=== PATIENT | male | born 1945 | race Caucasian/White ===

== ENCOUNTER 2018-10-09 22:02 | Inpatient (IN) | payer OTHER ==
[2018-10-09] MEDS ORDERED: OCTREOTIDE ACETATE 50 MCG/1 ML - 1 ML VIAL IVPUSH ONE (22:27)
[2018-10-09] MEDS ORDERED: ONDANSETRON 4 MG/2 ML VIAL IVPUSH STA (22:27)
[2018-10-09] MEDS ORDERED: SODIUM CHLORIDE 1,000 ML IV STA (22:27)
[2018-10-09] MEDS ORDERED: PANTOPRAZOLE SODIUM 40 MG in SODIUM CHLORIDE 100 ML IVPB ONE (22:27)
[2018-10-09] MEDS ORDERED: PANTOPRAZOLE SODIUM 40 MG/100 ML BAG IVPB ONE (22:54)
[2018-10-09] MEDS ORDERED: ONDANSETRON 4 MG/2 ML VIAL ONE (22:54)
[2018-10-09] MEDS ORDERED: OCTREOTIDE ACETATE 100 MCG/1 ML ONE (22:55)
[2018-10-09 23:19] LABS: INR 1.52 (0.83-1.09)
[2018-10-09 23:25] LABS: BASO % 0.5 % (0-2.0); EOS % 0.7 % (0-4.5); MCHC 32.8 g/dl (32.0-35.9); MEAN CELL VOLUME 94.6 fl (80-96); MEAN PLT VOLUME 9.1 fl (7.5-11.1); MONO % 5.8 % (3.8-10.2); RBC 1.91 M/mm3 (4.00-5.60); RDW 15.4 % (11.9-15.9); RETICULOCYTES 5.43 % (0.5-1.5); WHITE BLOOD COUNT 13.3 K/mm3 (4.0-10.0)
[2018-10-09 23:28] LABS: HEMOGLOBIN 5.9 GM/dL (11.7-16.9); PLATELET COUNT 3 K/MM3 (134-434)
[2018-10-09 23:32] LABS: ALBUMIN 2.6 g/dl (3.4-5.0); ALK PHOS 68 U/L (45-117); ANION GAP 14 MMOL/L (8-16); BILIRUBIN,TOTAL 0.7 mg/dL (0.2-1); BLOOD UREA NITROGEN 57.3 mg/dL (7-18); CALCIUM 8.1 mg/dL (8.5-10.1); CHLORIDE 106 mmol/L (98-107); CO2 18 mmol/L (21-32); CREATININE 1.4 mg/dL (0.55-1.3); GLUCOSE,RANDOM 167 mg/dL (74-106); SGOT/AST 14 U/L (15-37); SGPT/ALT 20 U/L (13-61); SODIUM 139 mmol/L (136-145); TOT PROT 5.8 g/dl (6.4-8.2)
[2018-10-10 00:05] LABS: PLATELET ESTIMATE Markedly Decrease
[2018-10-10] MEDS ORDERED: OCTREOTIDE ACETATE 200 MCG, OCTREOTIDE ACETATE 1,000 MCG in DEXTROSE 5%-WATER - 496 ML IVPB SCH (00:15)
[2018-10-10] MEDS ORDERED: PANTOPRAZOLE SODIUM 80 MG in SODIUM CHLORIDE 100 ML IVPB SCH (00:30)
[2018-10-10] MEDS ORDERED: NAFCILLIN - 2 GM in DEXTROSE 5%-WATER - 100 ML IVPB STA (00:34)
[2018-10-10] MEDS ORDERED: PANTOPRAZOLE SODIUM 40 MG VIAL ONE (00:36)
[2018-10-10 00:45] LABS: MCH 30.9 pg (25.7-33.7); MCHC 32.5 g/dl (32.0-35.9); MEAN CELL VOLUME 95.1 fl (80-96); RBC 1.68 M/mm3 (4.00-5.60); RDW 15.1 % (11.9-15.9); WHITE BLOOD COUNT 13.2 K/mm3 (4.0-10.0)
[2018-10-10 00:58] LABS: HEMOGLOBIN 5.2 GM/dL (11.7-16.9); PLATELET COUNT 1 K/MM3 (134-434)
--- NOTE | 2018-10-10 02:06 | PDOC ---
Documentation entered by Miri Hwang SCRIBE, acting as scribe for Natalie Byrne MD. Natalie Byrne MD: This documentation has been prepared by the Eri palmer Sammi, SCRIBE, under my direction and personally reviewed by me in its entirety. I confirm that the documentation accurately reflects all work, treatment, procedures, and medical decision making performed by me. History of Present Illness - General Chief Complaint: Rectal Bleed Stated Complaint: GI BLEED Time Seen by Provider: 10/09/18 22:15 History Source: Patient Exam Limitations: No Limitations - History of Present Illness Initial Comments: 10/09/18 22:26 The patient is a 73 year old male, with a significant PMH of alcohollism, upper GI bleeds, HTN, DM, who was BIBA to the emergency department from [facility] for evaluation of blood and black tary stools, and vomiting blood. Past History - Past Medical History Allergies/Adverse Reactions: Allergies Allergy/AdvReac Type Severity Reaction Status Date / Time No Known Allergies Allergy Verified 10/09/18 22:18 - Suicide/Smoking/Psychosocial Hx Smoking History: Never smoked Have you smoked in the past 12 months: No Information on smoking cessation initiated: No Hx Alcohol Use: Yes Drug/Substance Use Hx: No *Physical Exam - Vital Signs Last Vital Signs Temp Pulse Resp BP Pulse Ox 99.4 F 110 H 20 98/52 L 97 10/09/18 22:02 10/09/18 22:02 10/09/18 22:02 10/09/18 22:02 10/09/18 22:02 ED Treatment Course - LABORATORY CBC & Chemistry Diagram: 10/10/18 00:40 10/09/18 22:41 - ADDITIONAL ORDERS Additional order review: Laboratory Results 10/10/18 10/09/18 10/09/18 00:40 22:45 22:41 PT with INR INR Sodium Potassium Chloride Carbon Dioxide Anion Gap BUN Creatinine Est GFR (CKD-EPI)AfAm Est GFR (CKD-EPI)NonAf Random Glucose Calcium Total Bilirubin AST ALT Alkaline Phosphatase Creatine Kinase Troponin I Total Protein Albumin Stool Occult Blood Positive Anti-A Titer Cancelled Blood Type Cancelled O POSITIVE Antibody Screen Cancelled Negative Crossmatch See Detail 10/09/18 10/09/18 22:41 22:41 PT with INR 18.00 H INR 1.52 H Sodium 139 Potassium 5.0 Chloride 106 Carbon Dioxide 18 L Anion Gap 14 BUN 57.3 H Creatinine 1.4 H Est GFR (CKD-EPI)AfAm 56.96 Est GFR (CKD-EPI)NonAf 49.14 Random Glucose 167 H Calcium 8.1 L Total Bilirubin 0.7 AST 14 L ALT 20 Alkaline Phosphatase 68 Creatine Kinase 84 Troponin I < 0.02 Total Protein 5.8 L Albumin 2.6 L Stool Occult Blood Anti-A Titer Blood Type Antibody Screen Crossmatch 10/09/18 22:41 RBC 1.91 L MCV 94.6 MCHC 32.8 RDW 15.4 MPV 9.1 Neutrophils % 79.0 Lymphocytes % 14.0 Monocytes % 5.8 Eosinophils % 0.7 Basophils % 0.5 - RADIOLOGY Radiology Studies Ordered: Category Date Time Status CHEST X-RAY PORTABLE* [RAD] Stat Radiology 10/09/18 22:27 Taken - Medications Given in the ED: ED Medications Discontinued Medications Generic Name Dose Route Start Last Admin Trade Name Freq PRN Reason Stop Dose Admin Pantoprazole Sodium 40 mg/ 100 mls @ 200 mls/hr 10/09/18 22:27 10/09/18 23:08 Sodium Chloride IVPB 10/09/18 22:56 200 mls/hr ONCE ONE Administration Sodium Chloride 1,000 mls @ 1,000 mls/hr 10/09/18 22:27 10/09/18 23:07 Normal Saline - IV 10/09/18 23:26 1,000 mls/hr ASDIR STA Administration Octreotide Acetate 50 mcg 10/09/18 22:27 10/09/18 23:22 Sandostatin - IVPUSH 10/09/18 22:28 50 mcg ONCE ONE Administration Ondansetron HCl 4 mg 10/09/18 22:27 10/09/18 23:08 Zofran Injection IVPUSH 10/09/18 22:28 4 mg ONCE STA Administration Medical Decision Making - Critical Care Time Total Critical Care Time (minutes): 121 Critical Care Statement: The care of this patient involved high complexity decision making to prevent further life threatening deterioration of the patient 's condition and/or to evaluate & treat vital organ system(s) failure or risk of failure. - Medical Decision Making 10/10/18 01:15 73-year-old male with a history of alcoholism presents with a GI bleed. Reportedly, he had coffee-ground emesis earlier in the day and then started to have blood in his stool. Hemoglobin is 5.9. His platelets were reported as 3000. Spoke with GI consult. Dr. Adkins and the patient will be placed on PPI drip, octreotide drip, to be transfused with packed rbc s and also platelets. Patient to be kept nothing by mouth and admitted ICU 10/10/18 01:58 10/10/18 02:01 His daughter is the health care proxy and signed for his blood transfusions because the pt asked her to sign. . The pt is alert but a very poor historian with little understanding of his medical history-this is chronic issue Recently this pt was admitted to [facility] for a staph infection and had a PICC line placed for 3 weeks of Nafcillin 2gm . According to the daughter they could not find a source of his infection.He did not go back to [facility] today because he did not like his experience at that facility *DC/Admit/Observation/Transfer Diagnosis at time of Disposition: History of ETOH abuse GI bleed Qualifiers: GI bleed type/associated pathology: melena Qualified Code(s): K92.1 - Melena Diabetes Qualifiers: Diabetes mellitus type: type 2 Diabetes mellitus complication status: with skin complications Diabetes mellitus complication detail: with dermatitis Anemia Qualifiers: Anemia type: other cause Other causes of anemia: other cause, not classified Qualified Code(s): D64.89 - Other specified anemias - Discharge Dispostion Condition at time of disposition: Fair Decision to Admit order: Yes - Referrals - Patient Instructions - Post Discharge Activity
--- NOTE | 2018-10-10 02:38 | CONSULT ---
Consultation: REQUESTING PROVIDER: Dr. Byrne CONSULT REQUEST: We have been asked to medically evaluate this patient for ICU. HISTORY OF PRESENT ILLNESS: Pt. is a 73 y.o. M w/ PMHx. of NIDDM, EtOH abuse, and DANNA (on CPAP) presents from [facility] after having 2 episodes of hematemesis today and melena for the past 4 days. Daughter at bedside to corroborate history. Pt. denies this ever happening before. Pt. endorses dizziness that happens with activity that began since ED arrival. Pt. states that he had large amount of mazin red blood during hematemesis ("filled up half the sink"), and multiple episodes of tarry black stools over the last 4 days with episodes of mazin blood during the last day. Pt. states his last drink was just prior September 19. Pt. denies ever having seizures from withdrawal. Of note this was the day before his prolonged admission to [place] for Pneumonia?, EtoH withdrawal ( Daughter states he drinks 4 small? bottles of Zinfandel per day with some unknown amount of vodka usage, Pt. lives alone at home) and found to have sepsis of unkown source requiring antibiotics and discharged on 3 week course if IV nafcillin(On week 2 currently). Pt. denies ever having an EGD, but endorses a normal colonoscopy [address] Livingston. Pt. endorses shortness of breath especially with exertion. Ambulates with cane since [facility] discharge. Pt. denies any chest pain, palpiatations, nausea, diarrhea, constipation, hematuria, dysuria numbness/tingling, headache, or abdominal pain at this time. REVIEW OF SYSTEMS: As above PHYSICAL EXAMINATION Vital Signs - 24 hr 10/09/18 22:02 Temperature 99.4 F Pulse Rate 110 H Respiratory 20 Rate Blood Pressure 98/52 L O2 Sat by Pulse 97 Oximetry (%) GENERAL: Awake, alert, and fully oriented, in no acute distress. HEAD: Normal with no signs of trauma. EYES: Pupils equal, round and reactive to light, extraocular movements intact, sclera anicteric, conjunctiva clear. EARS, NOSE, THROAT: Ears normal, nares patent, oropharynx clear without exudates. Moist mucous membranes. LUNGS: Breath sounds equal, clear to auscultation bilaterally. No wheezes, and no crackles. No accessory muscle use. HEART: Regular rate and rhythm, normal S1 and S2 without murmur ABDOMEN: Soft, nontender, distended, normoactive bowel sounds, no guarding, no rebound, no masses. Hepatomegaly KAMRAN: Good rectal tone, no external or internal hemorrhoids appreciated. No prostate enlargement appreciated. No mazin blood on glove. MUSCULOSKELETAL: Normal range of motion at all joints. UPPER EXTREMITIES: Warm, well-perfused. No cyanosis. No clubbing. Cap refill <2 seconds. LOWER EXTREMITIES: 2+ dorsal pedal pulses, warm, well-perfused. No calf tenderness. 2+ peripheral edema. B/l Hallux plantar ulcer R>L NEUROLOGICAL: Normal speech. Gait not assessed. PSYCHIATRIC: Cooperative. Good eye contact. Appropriate mood and affect. SKIN: Warm, dry, chronic venous stasis changes with erythema Laboratory Results - last 24 hr 10/09/18 10/09/18 10/09/18 22:41 22:41 22:41 WBC 13.3 H RBC 1.91 L Hgb 5.9 L* Hct 18.0 L MCV 94.6 MCH 31.0 MCHC 32.8 RDW 15.4 Plt Count 3 L* MPV 9.1 Absolute Neuts (auto) 10.5 H Neutrophils % 79.0 Lymphocytes % 14.0 Monocytes % 5.8 Eosinophils % 0.7 Basophils % 0.5 Nucleated RBC % 0 Platelet Estimate Markedly decrease Platelet Comment No clumping noted Retic Count 5.43 H PT with INR 18.00 H INR 1.52 H Sodium 139 Potassium 5.0 Chloride 106 Carbon Dioxide 18 L Anion Gap 14 BUN 57.3 H Creatinine 1.4 H Est GFR (CKD-EPI)AfAm 56.96 Est GFR (CKD-EPI)NonAf 49.14 Random Glucose 167 H Calcium 8.1 L Total Bilirubin 0.7 AST 14 L ALT 20 Alkaline Phosphatase 68 Creatine Kinase 84 Troponin I < 0.02 Total Protein 5.8 L Albumin 2.6 L Stool Occult Blood Anti-A Titer Blood Type Antibody Screen Crossmatch 10/09/18 10/09/18 10/10/18 22:41 22:45 00:40 WBC RBC Hgb Hct MCV MCH MCHC RDW Plt Count MPV Absolute Neuts (auto) Neutrophils % Lymphocytes % Monocytes % Eosinophils % Basophils % Nucleated RBC % Platelet Estimate Platelet Comment Retic Count PT with INR INR Sodium Potassium Chloride Carbon Dioxide Anion Gap BUN Creatinine Est GFR (CKD-EPI)AfAm Est GFR (CKD-EPI)NonAf Random Glucose Calcium Total Bilirubin AST ALT Alkaline Phosphatase Creatine Kinase Troponin I Total Protein Albumin Stool Occult Blood Positive Anti-A Titer Cancelled Blood Type O POSITIVE Cancelled Antibody Screen Negative Cancelled Crossmatch See Detail 10/10/18 10/10/18 00:40 00:40 WBC 13.2 H RBC 1.68 L Hgb 5.2 L* Hct 16.0 L MCV 95.1 MCH 30.9 MCHC 32.5 RDW 15.1 Plt Count 1 L* D MPV 12.0 H D Absolute Neuts (auto) Neutrophils % Lymphocytes % Monocytes % Eosinophils % Basophils % Nucleated RBC % Platelet Estimate Platelet Comment Retic Count PT with INR INR Sodium Potassium Chloride Carbon Dioxide Anion Gap BUN Creatinine Est GFR (CKD-EPI)AfAm Est GFR (CKD-EPI)NonAf Random Glucose Calcium Total Bilirubin AST ALT Alkaline Phosphatase Creatine Kinase Troponin I Total Protein Albumin Stool Occult Blood Anti-A Titer Blood Type O POSITIVE Antibody Screen Crossmatch Active Medications Current Medications Octreotide Acetate 200 mcg/Octreotide Acetate 1,000 mcg/Dextrose 500 mls @ 20.833 mls/hr IVPB ASDIR [facility] Last Admin: 10/10/18 01:38 Dose: 20.833 mls/hr Pantoprazole Sodium 80 mg/ (Sodium Chloride) 100 mls @ 10 mls/hr IVPB Q10H [facility] Last Admin: 10/10/18 00:43 Dose: 10 mls/hr ASSESSMENT/PLAN: Pt. is a 73 y.o. M w/ PMHx. of NIDDM, EtOH abuse, and DANNA (on CPAP) presents from [facility] after having 2 episodes of hematemesis today and melena for the past 4 days. Gastroenterology/Hematology/Oncology #UGI and r/o LGI bleed likely secondary to thrombocyopenia Hgb: 5.9--> 5.2, /f/u rpt. CBC 2 units pRBCs and 2 units Platelets ordered Thrombocytopenia may be due to ITP: most likely secondary due to recent infection(low suspicion for DIC) vs. bone marrow suppression secondary to alcohol abuse Given 1,000mg IV Solumedrol Stat f/u consult to Dr. Boudreaux for considering starting IVIG c/w Octreotide drip c/w Protonix drip Consult to Dr. Adkins appreciated--> likely will need EGD to assess for varices and location of UGI bleed, will need colonoscopy if EGD unremarkable If Pt. has ongoing bleed, will consider bleeding scan NPO IVF HOB 30 degrees + f/u PT, PTT, fibrinogen, FDP, TSH, Hepatitis Panel, Pt. refused HIV f/u UA, UCx. and BCx. Start Vancomycin and Zosyn (Pt. should not have leukocytosis if on Nafcillin for infection) #EtOH Abuse Cr. 1.4, trend Can start CIWA protocol if Pt. starts to develop withdrawal symptoms however Pt. was in [place] for a prolonged admission and then transferred to [facility] before being sent here f/u Abd. US--> May need Abdominal CT Fall risk precautions. Nephrology #Acute Renal Insufficiency Likely secondary to acute blood loss f/u Rpt. chemistry Reach out to PCP Dr. Lizette Hall for baseline Cr. f/u Renal US Endocrinology #NIDDM hold oral medications BGM ACHS ISS ACHS Cardiology #Sinus Tachycardia likely 2/2 hypovolemia, will start IVF after Pt. receives pRBCs Pulmonology #DANNA c/w CPAP at night CXR: per my read no acute pathology FEN LR @ 100 after 1st unit of pRBCs monitor electrolytes and replete as needed NPO DVT Ppx. SCDs- given thrombocytopenia not a candidate for AC at this time Dispo: We will continue to follow the patient. Thank you for this consultative opportunity. Visit type - Emergency Visit Emergency Visit: Yes ED Registration Date: 10/10/18 Care time: The patient presented to the Emergency Department on the above date and was hospitalized for further evaluation of their emergent condition. - New Patient This patient is new to me today: Yes Date on this admission: 10/11/18 - Critical Care Critical Care patient: Yes Total Critical Care Time (in minutes): 55 Critical Care Statement: The care of this patient involved high complexity decision making to prevent further life threatening deterioration of the patient 's condition and/or to evaluate & treat vital organ system(s) failure or risk of failure. ATTENDING PHYSICIAN STATEMENT I saw and evaluated the patient. I reviewed the resident's note and discussed the case with the resident. I agree with the resident's findings and plan as documented. SUBJECTIVE: OBJECTIVE: ASSESSMENT AND PLAN:
[2018-10-10] MEDS ORDERED: LACTATED RINGERS SOLUTION 1,000 ML/1,000 ML INFUS.BAG IV SCH (03:30)
[2018-10-10] MEDS ORDERED: LACTATED RINGERS SOLUTION 1,000 ML/1,000 ML INFUS.BAG IV STA (04:04)
[2018-10-10 04:38] VITALS: BMI 30.8
[2018-10-10] MEDS ORDERED: methylPREDNISolone NA SUCC 1000 MG/8 ML VIAL IVPB ONE (04:58)
--- NOTE | 2018-10-10 05:31 | PN ---
Teaching Attending Note Name of Resident: Lo Palacios ATTENDING PHYSICIAN STATEMENT I saw and evaluated the patient. I reviewed the resident's note and discussed the case with the resident. I agree with the resident's findings and plan as documented. SUBJECTIVE: Patient is a 73 year old man with PMH of NIDDM, Alcohol abuse, and DANNA (on CPAP ) who presents from [facility] after having 2 episodes of hematemesis today and melena for the past 4 days. Has associated dizziness that happens with activity. Says that he had large amount of mazin red blood during hematemesis ("filled up half the sink"), and multiple episodes of tarry black stools over the last 4 days with episodes of mazin blood during the last day. Daughter states he drinks 4 small? bottles of Zinfandel per day with some unknown amount of vodka. His his last drink was just prior September 19 just before a prolonged hospitalization at [facility] for Pneumonia?, alcohol withdrawal, sepsis of unknown source requiring antibiotics - was discharged on 3 week course if IV nafcillin (Currently on week 2). No recent EGD, but reports a normal colonoscopy [address] Livingston. Currently has a shortness of breath with exertion. Ambulates with cane since discharge from [facility]. Denies any chest pain, palpitations, nausea, diarrhea, constipation, hematuria, dysuria numbness/tingling, headache, or abdominal pain at this time. OBJECTIVE: Alert Vital Signs Period Temp Pulse Resp BP Sys/Hogan Pulse Ox Last 24 Hr 98.8 F-99.4 F 102-123 19-22 75-154/47-73 97-100 HEENT: No Jaundice, eye redness or discharge, PERRLA, EOMI. Normocephalic, atraumatic. External ears are normal and hearing is grossly intact. No nasal discharge. Neck: Supple, nontender. No palpable adenopathy or thyromegaly. No JVD Chest: Good effort. Clear to auscultation and percussion. Heart: Tachycardia. No S3, rub or murmur Abdomen: Not distended, soft, nontender and no HSM. No rebound or guarding. Normal bowel sounds. On rectal examination, no hemorrhoids noted and no mazin blood on glove. Ext: Peripheral pulses intact. Non pitting leg edema. Chronic stasis dermatitis changes. Bilateral plantar halux ulcers. Skin: Warm and dry. No petechiae, rash or ecchymosis. Neuro: Alert. Oriented x3. CN 2-12 grossly intact. Sensation grossly intact in all four extremities and DTR are symmetric. Psych: Appropriate mood and affect. Good insight. Current Medications Generic Name Dose Route Start Last Admin Trade Name Roeq PRN Reason Stop Dose Admin Octreotide Acetate 200 mcg/ 500 mls @ 20.833 mls/hr 10/10/18 00:15 10/10/18 01:38 Octreotide Acetate 1,000 mcg/ IVPB 20.833 mls/hr Dextrose ASDIR RADAMES Administration Pantoprazole Sodium 80 mg/ 100 mls @ 10 mls/hr 10/10/18 00:30 10/10/18 00:43 Sodium Chloride IVPB 10 mls/hr Q10H RADAMES Administration 8 MG/HR Lactated Ringer's 1,000 ml in 1,000 mls @ 100 mls/hr 10/10/18 03:30 Lactated Ringers Solution IV ASDIR RADAMES Insulin Aspart 1 vial 10/10/18 07:00 Novolog Vial Sliding Scale - SQ ACHS RADAMES Protocol Abnormal Lab Results 10/09/18 10/09/18 10/09/18 22:41 22:41 22:41 WBC 13.3 H RBC 1.91 L Hgb 5.9 L* Hct 18.0 L Plt Count 3 L* MPV Absolute Neuts (auto) 10.5 H Retic Count 5.43 H PT with INR 18.00 H INR 1.52 H Carbon Dioxide 18 L BUN 57.3 H Creatinine 1.4 H Random Glucose 167 H Calcium 8.1 L AST 14 L Total Protein 5.8 L Albumin 2.6 L Crossmatch 10/09/18 10/10/18 22:41 00:40 WBC 13.2 H RBC 1.68 L Hgb 5.2 L* Hct 16.0 L Plt Count 1 L* D MPV 12.0 H D Absolute Neuts (auto) Retic Count PT with INR INR Carbon Dioxide BUN Creatinine Random Glucose Calcium AST Total Protein Albumin Crossmatch See Detail ASSESSMENT AND PLAN: 1. Severe thrombocytopenia/GI bleeding and severe anemia - Chronic liver disease due to alcoholism, direct effects of alcohol on bone marrow are likely primary causes of thrombocytopenia. But in view of current infection, he may also have a component of secondary ITP and/or DIC. Has positive hemoccult test. Patient is on Nafcillin via PICC line from [facility] for unspecified "infection". Will do sepsis work up - blood cultures, urinalysis, urine culture and treat with Vancomycin and Zosyn pending more information from [facility] medical records. This is week 2 of Nafcillin therapy and his WBC is still 13.5K !! Consult ID. Will get head CT, send blood for fibrinogen, FDP, aPTT, HIV test and continue with PRBC and Platelet transfusion and give 1 gm Solumedrol IV pending deputy program manager evaluation. Continue IV Octreotide drip, IV Protonix push bid and consult GI. Continue comprehensive care of all his comorbid conditions. 2. DM For now, we will hold the home diabetes drugs and implement sliding scale insulin regimen. Provide comprehensive diabetes care with patient teaching and counseling about the importance of adherence to prescribed diabetes regimen, euglycemia, eye care and foot care. 3. LONNY - Likely due to volume loss. Monitor urine output while he is being transfused/hydrated. Get kidney sonogram and avoid nephrotoxic agents such as NSAIDS, aminoglycosides, contrast dyes and certain Alternative medicine products. 4. Obesity Counseled on the risks associated with obesity. Will provide patient all the necessary assistance, counseling and positive reinforcement to facilitate weight loss. Consult mirror silverer. 5. Alcohol abuse - Implement CIWA ativan alcohol withdrawal protocol and do neurochecks. Implement seizure, fall and aspiration precautions. Treat with thiamine and folic acid and monitor electrolytes (Ca,Mg,K,P). Counseled patient about abstaining from alcohol. Will consult equal opportunity specialist and refer to alcohol detox upon discharge. 6. DVT prophylaxis - Can neither give heparin or use SCD because of severe thrombocytopenia. Strive for early ambulation when clinically safe. 7. Advance directives - Full code
[2018-10-10] MEDS ORDERED: VANCOMYCIN 1 GRAM (PRE-DOCKED) 1,000 MG/250 ML BAG IVPB SCH ×2 (06:15→18:00)
--- NOTE | 2018-10-10 06:22 | HP ---
CHIEF COMPLAINT:Hematemesis PCP: HISTORY OF PRESENT ILLNESS: 73 M with PMH DANNA, Diabetes, EtOH abuse, who comes in with 4 day history of emesis. Patient describes an episode of suspected food poisoning 2 day before admission which gave him episodes of emesis and weakness. Today he had 2 episodes of hematemesis that filled up approximately half of the sink. Throughout the day he had 4 episodes of melena, which he described as dark loose stools. He last had a colonoscopy 1.[address] Livingston. Denies ever having EGD done. He was most recently staying in [facility] home after discharge from [facility] where he was being treated for unspecified infection. Denies chest pain, shortness of breath, dizziness, abdominal pains, fever. ER course was notable for: (1)Hemoglobin of 5.9, platelet count of 3 (2)Given 1L NS, started on octreotride and PPI drip. Recent Travel:None PAST MEDICAL HISTORY: see above PAST SURGICAL HISTORY: Right hip replacement 5 years ago Social History: Smoking: Former smoker, 40 pack years, quit 10 years ago Alcohol: Last drink 09/19, usually drinks about 4 zinfindel obed and vodka. Drugs: Denies IVDU Family History: Sister passed of ovarian cancer 60, sister passed of pancreatic cancer 70, father alzheimer, passed in his 90s. Allergies No Known Allergies Allergy (Verified 10/09/18 22:18) HOME MEDICATIONS: REVIEW OF SYSTEMS (See HPI) CONSTITUTIONAL: Absent: fever, chills, diaphoresis, generalized weakness, malaise, loss of appetite, weight change HEENT: Absent: rhinorrhea, nasal congestion, throat pain, throat swelling, difficulty swallowing, mouth swelling, ear pain, eye pain, visual changes CARDIOVASCULAR: Absent: chest pain, syncope, palpitations, irregular heart rate, lightheadedness , peripheral edema RESPIRATORY: Absent: cough, shortness of breath, dyspnea with exertion, orthopnea, wheezing, stridor, hemoptysis GASTROINTESTINAL: Absent: abdominal pain, abdominal distension, nausea, vomiting, diarrhea, constipation, hematochezia GENITOURINARY: Absent: dysuria, frequency, urgency, hesitancy, hematuria, flank pain, genital pain MUSCULOSKELETAL: Absent: myalgia, arthralgia, joint swelling, back pain, neck pain SKIN: Absent: rash, itching, pallor HEMATOLOGIC/IMMUNOLOGIC: Absent: easy bleeding, easy bruising, lymphadenopathy, frequent infections ENDOCRINE: Absent: unexplained weight gain, unexplained weight loss, heat intolerance, cold intolerance NEUROLOGIC: Absent: headache, focal weakness or paresthesias, dizziness, unsteady gait, seizure, mental status changes, bladder or bowel incontinence PSYCHIATRIC: Absent: anxiety, depression, suicidal or homicidal ideation, hallucinations. PHYSICAL EXAMINATION Vital Signs - 24 hr 10/09/18 10/10/18 10/10/18 22:02 01:55 02:10 Temperature 99.4 F 99.0 F Pulse Rate 110 H Pulse Rate [ 113 H 102 H Left] Respiratory 20 19 19 Rate Blood Pressure 98/52 L Blood Pressure 75/52 L 83/51 L [Left Arm] O2 Sat by Pulse 97 100 100 Oximetry (%) 10/10/18 10/10/18 10/10/18 02:45 03:39 05:01 Temperature 98.8 F 98.8 F 98.8 F Pulse Rate 123 H 122 H 118 H Pulse Rate [ Left] Respiratory 19 22 H 20 Rate Blood Pressure 86/47 L 154/73 91/52 L Blood Pressure [Left Arm] O2 Sat by Pulse Oximetry (%) GENERAL: Awake, alert, and fully oriented, in no acute distress. HEAD: Normal with no signs of trauma. NECK: Normal range of motion, supple without lymphadenopathy, JVD, or masses. LUNGS: Breath sounds equal, clear to auscultation bilaterally. No wheezes, and no crackles. No accessory muscle use. HEART: Tachycardic but normal rhythm, normal S1 and S2 without murmur, rub or gallop. ABDOMEN: Soft, nontender, not distended, normoactive bowel sounds, no guarding, no rebound, no masses. EXTREMITIES: 2+ pulses, warm, well-perfused. No cyanosis. No clubbing. No peripheral edema. Chronic venous stasis changes bilaterally. No areas of erythema, induration or drainage. SKIN: Warm, dry, normal turgor, no rashes or lesions noted, normal capillary refill. Laboratory Results - last 24 hr 10/09/18 10/09/18 10/09/18 22:41 22:41 22:41 WBC 13.3 H RBC 1.91 L Hgb 5.9 L* Hct 18.0 L MCV 94.6 MCH 31.0 MCHC 32.8 RDW 15.4 Plt Count 3 L* MPV 9.1 Absolute Neuts (auto) 10.5 H Neutrophils % 79.0 Lymphocytes % 14.0 Monocytes % 5.8 Eosinophils % 0.7 Basophils % 0.5 Nucleated RBC % 0 Platelet Estimate Markedly decrease Platelet Comment No clumping noted Retic Count 5.43 H PT with INR 18.00 H INR 1.52 H Sodium 139 Potassium 5.0 Chloride 106 Carbon Dioxide 18 L Anion Gap 14 BUN 57.3 H Creatinine 1.4 H Est GFR (CKD-EPI)AfAm 56.96 Est GFR (CKD-EPI)NonAf 49.14 Random Glucose 167 H Calcium 8.1 L Total Bilirubin 0.7 AST 14 L ALT 20 Alkaline Phosphatase 68 Creatine Kinase 84 Troponin I < 0.02 Total Protein 5.8 L Albumin 2.6 L Stool Occult Blood Anti-A Titer Blood Type Antibody Screen Crossmatch 10/09/18 10/09/18 10/10/18 22:41 22:45 00:40 WBC RBC Hgb Hct MCV MCH MCHC RDW Plt Count MPV Absolute Neuts (auto) Neutrophils % Lymphocytes % Monocytes % Eosinophils % Basophils % Nucleated RBC % Platelet Estimate Platelet Comment Retic Count PT with INR INR Sodium Potassium Chloride Carbon Dioxide Anion Gap BUN Creatinine Est GFR (CKD-EPI)AfAm Est GFR (CKD-EPI)NonAf Random Glucose Calcium Total Bilirubin AST ALT Alkaline Phosphatase Creatine Kinase Troponin I Total Protein Albumin Stool Occult Blood Positive Anti-A Titer Cancelled Blood Type O POSITIVE Cancelled Antibody Screen Negative Cancelled Crossmatch See Detail 10/10/18 10/10/18 00:40 00:40 WBC 13.2 H RBC 1.68 L Hgb 5.2 L* Hct 16.0 L MCV 95.1 MCH 30.9 MCHC 32.5 RDW 15.1 Plt Count 1 L* D MPV 12.0 H D Absolute Neuts (auto) Neutrophils % Lymphocytes % Monocytes % Eosinophils % Basophils % Nucleated RBC % Platelet Estimate Platelet Comment Retic Count PT with INR INR Sodium Potassium Chloride Carbon Dioxide Anion Gap BUN Creatinine Est GFR (CKD-EPI)AfAm Est GFR (CKD-EPI)NonAf Random Glucose Calcium Total Bilirubin AST ALT Alkaline Phosphatase Creatine Kinase Troponin I Total Protein Albumin Stool Occult Blood Anti-A Titer Blood Type O POSITIVE Antibody Screen Crossmatch ASSESSMENT/PLAN: 73 M with PMH of Diabetes, EtOH abuse, and DANNA who presents with a 4 day history of hematemsis and melenotic stools. 1) GI Bleed likely secondary to EtOH abuse Patient already received 1 unit PRBC, and 2 units of platelets. Started on PPI and octreotide drip GI consulted NPO LR @ 100 ml/hr Monitor CBC, BMP, stools 2) Likely ITP secondary to recent infection Most recent platelet count 1, down from 3 Received 1 gram solumedrol Heme consulted Possible IVIG therapy Monitor for signs of bleeding Fibrinogen, fibrin degradation products pending Head CT pending to ensure no current bleeds 3) Recently treated unknown infection Patient received 2 weeks of IV Nafcillin for unspecified infection Will need to obtain records from [facility] ID consulted Sepsis workup initiated Currently on Vancomycin and Zoysn 4) Diabetes Sliding scale BGMs ACHS HbA1C pending 5) EtOH abuse Patient currently not in withdrawal, last drink 09/19 Monitor for any signs and symptoms of withdrawal F LR @ 100 ml/hr E Monitor Electrolytes N NPO DVT Prophylaxis: SCDs GI Prophylaxis: Protonix Drip Problem List - Problem (1) Anemia Code(s): D64.9 - ANEMIA, UNSPECIFIED Qualifiers: Anemia type: other cause Other causes of anemia: other cause, not classified Qualified Code(s): D64.89 - Other specified anemias (2) Diabetes mellitus Code(s): E11.9 - TYPE 2 DIABETES MELLITUS WITHOUT COMPLICATIONS Qualifiers: Diabetes mellitus type: type 2 Diabetes mellitus complication status: with skin complications Diabetes mellitus complication detail: with dermatitis (3) Gastrointestinal hemorrhage Code(s): K92.2 - GASTROINTESTINAL HEMORRHAGE, UNSPECIFIED Qualifiers: GI bleed type/associated pathology: melena Qualified Code(s): K92.1 - Melena (4) History of alcohol abuse Code(s): F10.11 - ALCOHOL ABUSE, IN REMISSION Visit type - Emergency Visit Emergency Visit: Yes ED Registration Date: 10/10/18 Care time: The patient presented to the Emergency Department on the above date and was hospitalized for further evaluation of their emergent condition. - New Patient This patient is new to me today: Yes Date on this admission: 10/10/18 - Critical Care Critical Care patient: Yes Total Critical Care Time (in minutes): 35 Critical Care Statement: The care of this patient involved high complexity decision making to prevent further life threatening deterioration of the patient 's condition and/or to evaluate & treat vital organ system(s) failure or risk of failure. ATTENDING PHYSICIAN STATEMENT I saw and evaluated the patient. I reviewed the resident's note and discussed the case with the resident. I agree with the resident's findings and plan as documented. SUBJECTIVE: OBJECTIVE: ASSESSMENT AND PLAN:
[2018-10-10] MEDS ORDERED: PIPERACILLIN/TAZOBACTAM 2.25 GM VIAL IVPB ONE ×2 (06:40→09:14)
[2018-10-10] MEDS ORDERED: DEXTROSE 5%-WATER - 50 ML IVPB ONE ×4 (06:40→21:31)
[2018-10-10] MEDS: PIPERACILLIN/TAZOB 2.25 GM 2.25 GM in DEXTROSE 5%-WATER - 50 ML IVPB SCH ×2 (06:45→09:20)
[2018-10-10 06:52] LABS: BASO % 0.7 % (0-2.0); EOS % 2.6 % (0-4.5); HEMATOCRIT 16.9 % (35.4-49); LYMPH % 15.9 % (8-40); MCH 31.8 pg (25.7-33.7); MCHC 34.4 g/dl (32.0-35.9); MEAN CELL VOLUME 92.6 fl (80-96); MEAN PLT VOLUME 6.8 fl (7.5-11.1); MONO % 8.8 % (3.8-10.2); RBC 1.83 M/mm3 (4.00-5.60); WHITE BLOOD COUNT 10.7 K/mm3 (4.0-10.0)
[2018-10-10] MEDS ORDERED: INSULIN SLIDING SCALE (NOVOLOG) 1 VIAL SQ SCH (07:00)
[2018-10-10 07:01] LABS: INR 1.47 (0.83-1.09); PROTHROMBIN TIME (PATIENT) 17.4 SEC (9.7-13.0)
[2018-10-10 07:04] LABS: ACTIVATED PTT 34.4 SECONDS (25.2-36.5)
[2018-10-10 07:06] LABS: HEMOGLOBIN 5.8 GM/dL (11.7-16.9); PLATELET COUNT 13 K/MM3 (134-434)
[2018-10-10 07:20] LABS: ALBUMIN 2.5 g/dl (3.4-5.0); BILIRUBIN,TOTAL 0.8 mg/dL (0.2-1); BLOOD UREA NITROGEN 63.2 mg/dL (7-18); CALCIUM 7.9 mg/dL (8.5-10.1); CREATININE 1.5 mg/dL (0.55-1.3); MAGNESIUM 1.5 mg/dL (1.8-2.4); PHOSPHOROUS 3.2 mg/dL (2.5-4.9); POTASSIUM 4.6 mmol/L (3.5-5.1); TOT PROT 5.5 g/dl (6.4-8.2)
[2018-10-10] MEDS ORDERED: MAGNESIUM SULF 50% (8.12 MEQ/2 ML-1 GM VIAL) IVPB ONE (08:00)
[2018-10-10] MEDS ORDERED: IGA OV50 IVPB ONE (08:45)
[2018-10-10] MEDS ORDERED: GLY IVPB ONE (08:45)
[2018-10-10] MEDS ORDERED: IMMUN GLOB IVPB ONE (08:45)
[2018-10-10] MEDS ORDERED: PT OWN MED DRAWER 7, Y5N ONE ×4 (09:13→21:30)
[2018-10-10] MEDS: PANTOPRAZOLE SODIUM 40 MG VIAL IVPUSH SCH ×2 (09:19→21:34)
[2018-10-10 09:24] LABS: URINE APPEARANCE CLEAR; URINE BILIRUBIN NEGATIVE (NEGATIVE); URINE COLOR YELLOW; URINE GLUCOSE (UA) NEGATIVE (NEGATIVE); URINE KETONE NEGATIVE (NEGATIVE); URINE LEUK ESTERASE NEGATIVE (NEGATIVE); URINE NITRITE NEGATIVE (NEGATIVE); URINE PROTEIN NEGATIVE (NEGATIVE); URINE UROBILINOGEN 0.2 mg/dL (0.2-1.0)
--- NOTE | 2018-10-10 09:44 | PN ---
Progress Note (short form) - Note Progress Note: ID CONSULT DICTATED GI BLEED SEVERE ANEMIA/ THROMBOCYTOPENIA HX MSSA BACTEREMIA ON IV NAFCILLIN AZOTEMIA ETOH ABUSE REPEAT BC ORDERED CONTINUE NAFCILLIN OBTAIN RECORDS MITCHELL GI EVALUATION CRITICAL CARE TIME 35MIN
[2018-10-10] MEDS ORDERED: ACETAMINOPHEN 1000 MG/100 ML VIAL (NON FORMULARY) IVPB SCH (10:00)
[2018-10-10] MEDS ORDERED: DEXAMETHASONE SOD PHOSPHATE 20 MG/5 ML VIAL IVPB SCH (10:00)
[2018-10-10] MEDS ORDERED: FOLIC ACID 1 MG TABLET (FP) PO SCH ×2 (10:00→16:00)
[2018-10-10] MEDS ORDERED: THIAMINE HCL 100 MG TABLET (FP) PO SCH (10:00)
--- NOTE | 2018-10-10 10:49 | CONS ---
DATE OF CONSULTATION: 10/10/2018 REASON FOR CONSULTATION: The patient is a 73-year-old male evaluated for a history of staph bacteremia. HISTORY OF PRESENT ILLNESS: History was obtained from the chart. He does not give a reliable history. The patient was recently hospitalized at [facility] and was diagnosed with a staph bacteremia. According to the notes, there was no clear source for the staph bacteremia. He underwent a transesophageal echocardiogram, which was reportedly negative. He discharged to a [facility] facility to complete a 4-week course of IV nafcillin. According to the patient, he had been treated with nafcillin for 2 weeks at [facility] and had received an additional week at the [facility]. Also according to the sn[facility] notes, he had been hospitalized at [place] for pneumonia and sepsis. He is now admitted from the sn[facility] after hematemesis and black tarry stools. On initial evaluation, he was found to have a hemoglobin of 5.2 and a platelet count of 1000. He was transferred to the intensive care unit where he required a transfusion of packed red blood cells and platelets. He was started on intravenous PPI and octreotide. Patient has remained afebrile. White blood cell count is slightly elevated. He was empirically treated with vancomycin and Zosyn. At the present time he is awake and alert. He has no focal complaint. He is conversant, oriented x3. He was unable to give any additional details regarding his diagnosis of staph bacteremia. PAST MEDICAL HISTORY: Positive for alcohol abuse, hypertension, diabetes, GI bleed, obstructive sleep apnea. ALLERGIES: No known allergies. MEDICATIONS: At the present time include Tylenol, dexamethasone, vancomycin, Zosyn. SOCIAL HISTORY: Former smoker, stopped approximately 10 years ago, had a 40-pack year history. SYSTEMS REVIEW: Neurologic: No loss of consciousness, seizure activity, focal weakness. Cardiac: Negative chest pain or palpitations. Respiratory: Negative cough or sputum production. Gastrointestinal: As per HPI. Genitourinary: Negative for urinary tract infection. LABORATORY DATA: White count 10.7, hemoglobin 16.9, hematocrit 13,000. Differential 72 neutrophils, 15 lymphocytes, 8 monocytes. BUN 63, creatinine 1.5. Chest x-ray negative for acute infiltrate. HIV test negative. PHYSICAL EXAMINATION: General: On examination, the patient is awake, conversant. He is in no acute distress. Vitals: Temperature 98.8, blood pressure 105/59, pulse 92 regular, respiration 20 per minute. HEENT: Sclera anicteric. Heart: Sounds S1, S2. Lungs: Clear. Abdomen: Soft. No tenderness elicited. No mass, rebound, or rigidity. Extremities: Negative for edema. Positive chronic venous stasis dermatitis. IMPRESSION: 1. Gastrointestinal bleed. 2. Severe anemia and thrombocytopenia. 3. History of recent staphylococcal bacteremia. 4. Azotemia. 5. History of ethanol abuse. RECOMMENDATIONS: Repeat blood cultures have been obtained. Continue treatment with nafcillin 2 g IV piggyback every 4 hours. GI evaluation and follow up. Transfuse blood products as needed. Prognosis is guarded. Critical care time spent 35 minutes. Thank you for the kind referral. CHRISTIANO MATHEW M.D. [id number]
--- NOTE | 2018-10-10 10:59 | PN ---
Teaching Attending Note Name of Resident: Stefan Johnson ATTENDING PHYSICIAN STATEMENT I saw and evaluated the patient. I reviewed the resident's note and discussed the case with the resident. I agree with the resident's findings and plan as documented. SUBJECTIVE: Pt seen and examined in the ICU. No further bleeding since arrival to ICU. Borderline hypotensive. Has received 2 units PRBC, 3 units platelets so far. OBJECTIVE: Vital Signs Period Temp Pulse Resp BP Sys/Hogan Pulse Ox Last 24 Hr 98.2 F-99.4 F 92-123 11-22 75-154/43-73 97-100 Intake & Output 10/07/18 10/08/18 10/09/18 10/10/18 23:59 23:59 23:59 23:59 Intake Total 1884 Output Total 1500 Balance 384 Weight 110.722 kg 108.908 kg Gen: NAD at rest Heart: RRR Lung: decreased breath sounds at the bases Abd: soft, obese, nontender Ext: no edema, perfused CBC, BMP 10/10/18 06:12 10/10/18 06:12 Active Medications Acetaminophen (Ofirmev Injection -) 1,000 mg IVPB DAILY [facility] Stop: 10/13/18 10:01 Last Admin: 10/10/18 09:52 Dose: 1,000 mg Chlorhexidine Gluconate (Hibiclens For Decolonization -) 1 applic TP HS [facility] Dexamethasone Sodium Phosphate (Decadron Injection -) 40 mg IVPB DAILY [facility] Stop: 10/14/18 09:59 Last Admin: 10/10/18 10:30 Dose: 40 mg Folic Acid (Folic Acid -) 1 mg PO DAILY [facility] Last Admin: 10/10/18 09:19 Dose: 1 mg Octreotide Acetate 200 mcg/Octreotide Acetate 1,000 mcg/Dextrose 500 mls @ 20.833 mls/hr IVPB [facility]IR RADAMES Last Admin: 10/10/18 01:38 Dose: 20.833 mls/hr Lactated Ringer's (Lactated Ringers Solution) 1,000 ml in 1,000 mls @ 100 mls/ hr IV ASDIR RADAMES Immune Globulin (Gammagard Liquid 10% Vial) 30 gm in 300 mls @ 75 mls/hr IVPB ONCE ONE; Protocol Stop: 10/10/18 12:44 Nafcillin Sodium 2 gm/ (Dextrose) 100 mls @ 100 mls/hr IVPB Q4H-IV RADAMES; Protocol Mupirocin (Bactroban Ointment (For Decolonization) -) 1 applic NS BID [facility] Stop: 10/15/18 09:59 Pantoprazole Sodium (Protonix Iv) 40 mg IVPUSH BID [facility] Last Admin: 10/10/18 09:19 Dose: 40 mg Thiamine HCl (Vitamin B1 -) 100 mg PO DAILY [facility] Last Admin: 10/10/18 09:19 Dose: 100 mg ASSESSMENT AND PLAN: GI Bleed likely Upper Acute Blood Loss Anemia Severe Thrombocytopenia Coagulopathy r/o ITP Recent Staph Bacteremia DM Obstructive Sleep Apnea h/o Alcohol Abuse - monitor CBC, coags - transfuse as needed - protonix, octreotide gtts - NPO - ensure large bore peripheral access - GI eval - on empiric decadron, IVIG per hematolology - continue antibiotics - f/u cultures - echocardiogram if none done recently - O2 to keep SpO2 >90% - CPAP at night - DVT prophylaxis - continue ICU monitoring critical care time spent in reviewing chart, evaluating patient and formulating plan 35 min
--- NOTE | 2018-10-10 11:03 | PN ---
Physical Exam: SUBJECTIVE: Patient seen and examined at bedside. No further vomiting. s/p 1U PRBC and platelets this morning. Platelets improved to 13. Denies chest pain, SOB, nausea, vomiting, diarrhea, fevers, chills. Having dark bowel movements. OBJECTIVE: Vital Signs Period Temp Pulse Resp BP Sys/Hogan Pulse Ox Last 24 Hr 98.2 F-99.4 F 92-123 11-22 75-154/43-73 97-100 GENERAL: A&Ox3, no acute distress EYES: PERRLA, EOMI, sclera pale ENT: Dry mucus membranes NECK: No JVD LUNGS: CTA, no wheezes HEART: tachycardic, no murmurs ABDOMEN: Obese, Soft, nontender, BS present, liver/spleen not palpated MUSCULOSKELETAL: No CVA Tenderness EXTREMITIES: 2+ pulses, no edema. diffuse petechiae noted on b/l lower and upper extremities NEUROLOGICAL: Cranial nerves II-XII intact. No asterixis noted. No motor or sensory deficits. Laboratory Results - last 24 hr 10/09/18 10/09/18 10/09/18 22:41 22:41 22:41 WBC 13.3 H RBC 1.91 L Hgb 5.9 L* Hct 18.0 L MCV 94.6 MCH 31.0 MCHC 32.8 RDW 15.4 Plt Count 3 L* MPV 9.1 Absolute Neuts (auto) 10.5 H Neutrophils % 79.0 Lymphocytes % 14.0 Monocytes % 5.8 Eosinophils % 0.7 Basophils % 0.5 Nucleated RBC % 0 Platelet Estimate Markedly decrease Platelet Comment No clumping noted Retic Count 5.43 H PT with INR 18.00 H INR 1.52 H PTT (Actin FS) Fibrinogen Sodium 139 Potassium 5.0 Chloride 106 Carbon Dioxide 18 L Anion Gap 14 BUN 57.3 H Creatinine 1.4 H Est GFR (CKD-EPI)AfAm 56.96 Est GFR (CKD-EPI)NonAf 49.14 POC Glucometer Random Glucose 167 H Hemoglobin A1c % Calcium 8.1 L Phosphorus Magnesium Total Bilirubin 0.7 AST 14 L ALT 20 Alkaline Phosphatase 68 Creatine Kinase 84 Troponin I < 0.02 Total Protein 5.8 L Albumin 2.6 L Urine Color Urine Appearance Urine pH Ur Specific Rainbow Urine Protein Urine Glucose (UA) Urine Ketones Urine Blood Urine Nitrite Urine Bilirubin Urine Urobilinogen Ur Leukocyte Esterase Stool Occult Blood KHALIDA Screen KHALIDA Homogeneous Pattern KHALIDA Nucleolar Pattern KHALIDA Spindle Sukhi Pattern KHALIDA Midbody Pattern KHALIDA Centriole Pattern KHALIDA Nuclear Dot Pattern KHALIDA PCNA Pattern KHALIDA Nuclear Membr Pat KHALIDA Speckled Pattern KHALIDA Centromere Pattern HIV 1&2 Antibody Screen HIV P24 Antigen Anti-A Titer Blood Type Antibody Screen Crossmatch 10/09/18 10/09/18 10/10/18 22:41 22:45 00:40 WBC RBC Hgb Hct MCV MCH MCHC RDW Plt Count MPV Absolute Neuts (auto) Neutrophils % Lymphocytes % Monocytes % Eosinophils % Basophils % Nucleated RBC % Platelet Estimate Platelet Comment Retic Count PT with INR INR PTT (Actin FS) Fibrinogen Sodium Potassium Chloride Carbon Dioxide Anion Gap BUN Creatinine Est GFR (CKD-EPI)AfAm Est GFR (CKD-EPI)NonAf POC Glucometer Random Glucose Hemoglobin A1c % Calcium Phosphorus Magnesium Total Bilirubin AST ALT Alkaline Phosphatase Creatine Kinase Troponin I Total Protein Albumin Urine Color Urine Appearance Urine pH Ur Specific Rainbow Urine Protein Urine Glucose (UA) Urine Ketones Urine Blood Urine Nitrite Urine Bilirubin Urine Urobilinogen Ur Leukocyte Esterase Stool Occult Blood Positive KHALIDA Screen KHALIDA Homogeneous Pattern KHALIDA Nucleolar Pattern KHALIDA Spindle Sukhi Pattern KHALIDA Midbody Pattern KHALIDA Centriole Pattern KHALIDA Nuclear Dot Pattern K[place]IDA PCNA Pattern KHALIDA Nuclear Membr Pat KHALIAD Speckled Pattern KHALIDA Centromere Pattern HIV 1&2 Antibody Screen HIV P24 Antigen Anti-A Titer Cancelled Blood Type O POSITIVE Cancelled Antibody Screen Negative Cancelled Crossmatch See Detail See Detail 10/10/18 10/10/18 10/10/18 00:40 00:40 06:00 WBC 13.2 H RBC 1.68 L Hgb 5.2 L* Hct 16.0 L MCV 95.1 MCH 30.9 MCHC 32.5 RDW 15.1 Plt Count 1 L* D MPV 12.0 H D Absolute Neuts (auto) Neutrophils % Lymphocytes % Monocytes % Eosinophils % Basophils % Nucleated RBC % Platelet Estimate Platelet Comment Retic Count PT with INR INR PTT (Actin FS) Fibrinogen Sodium Potassium Chloride Carbon Dioxide Anion Gap BUN Creatinine Est GFR (CKD-EPI)AfAm Est GFR (CKD-EPI)NonAf POC Glucometer Random Glucose Hemoglobin A1c % Calcium Phosphorus Magnesium Total Bilirubin AST ALT Alkaline Phosphatase Creatine Kinase Troponin I Total Protein Albumin Urine Color Yellow Urine Appearance Clear Urine pH 5.0 Ur Specific Rainbow 1.009 L Urine Protein Negative Urine Glucose (UA) Negative Urine Ketones Negative Urine Blood Negative Urine Nitrite Negative Urine Bilirubin Negative Urine Urobilinogen 0.2 Ur Leukocyte Esterase Negative Stool Occult Blood KHALIDA Screen KHALIDA Homogeneous Pattern KHALIDA Nucleolar Pattern KHALIDA Spindle Sukhi Pattern KHALIDA Midbody Pattern KHALIDA Centriole Pattern KHALIDA Nuclear Dot Pattern KHALIDA PCNA Pattern KHALIDA Nuclear Membr Pat KHALIDA Speckled Pattern KHALIDA Centromere Pattern HIV 1&2 Antibody Screen HIV P24 Antigen Anti-A Titer Blood Type O POSITIVE Antibody Screen Crossmatch 10/10/18 10/10/18 10/10/18 06:12 06:12 06:12 WBC 10.7 H RBC 1.83 L Hgb 5.8 L* Hct 16.9 L MCV 92.6 MCH 31.8 MCHC 34.4 RDW 15.0 Plt Count 13 L* D MPV 6.8 L D Absolute Neuts (auto) 7.7 Neutrophils % 72.0 Lymphocytes % 15.9 Monocytes % 8.8 Eosinophils % 2.6 D Basophils % 0.7 Nucleated RBC % 0 Platelet Estimate Platelet Comment Retic Count PT with INR 17.40 H INR 1.47 H PTT (Actin FS) 34.4 Fibrinogen Sodium 140 Potassium 4.6 Chloride 106 Carbon Dioxide 22 Anion Gap 12 BUN 63.2 H Creatinine 1.5 H Est GFR (CKD-EPI)AfAm 52.40 Est GFR (CKD-EPI)NonAf 45.21 POC Glucometer Random Glucose 227 H Hemoglobin A1c % Calcium 7.9 L Phosphorus 3.2 Magnesium 1.5 L Total Bilirubin 0.8 AST 17 ALT 21 Alkaline Phosphatase 59 Creatine Kinase Troponin I Total Protein 5.5 L Albumin 2.5 L Urine Color Urine Appearance Urine pH Ur Specific Rainbow Urine Protein Urine Glucose (UA) Urine Ketones Urine Blood Urine Nitrite Urine Bilirubin Urine Urobilinogen Ur Leukocyte Esterase Stool Occult Blood KHALIDA Screen KHALIDA Homogeneous Pattern KHALIDA Nucleolar Pattern KHALIDA Spindle Sukhi Pattern KHALIDA Midbody Pattern KHALIDA Centriole Pattern KHALIDA Nuclear Dot Pattern KHALIDA PCNA Pattern KHALIDA Nuclear Membr Pat KHALIDA Speckled Pattern KHALIDA Centromere Pattern HIV 1&2 Antibody Screen HIV P24 Antigen Anti-A Titer Blood Type Antibody Screen Crossmatch 10/10/18 10/10/18 10/10/18 06:12 06:12 06:12 WBC RBC Hgb Hct MCV MCH MCHC RDW Plt Count MPV Absolute Neuts (auto) Neutrophils % Lymphocytes % Monocytes % Eosinophils % Basophils % Nucleated RBC % Platelet Estimate Platelet Comment Retic Count PT with INR INR PTT (Actin FS) Fibrinogen 264.0 Sodium Potassium Chloride Carbon Dioxide Anion Gap BUN Creatinine Est GFR (CKD-EPI)AfAm Est GFR (CKD-EPI)NonAf POC Glucometer Random Glucose Hemoglobin A1c % 6.6 H Calcium Phosphorus Magnesium Total Bilirubin AST ALT Alkaline Phosphatase Creatine Kinase Troponin I Total Protein Albumin Urine Color Urine Appearance Urine pH Ur Specific Rainbow Urine Protein Urine Glucose (UA) Urine Ketones Urine Blood Urine Nitrite Urine Bilirubin Urine Urobilinogen Ur Leukocyte Esterase Stool Occult Blood KHALIDA Screen Cancelled KHALIDA Homogeneous Pattern Cancelled KHALIDA Nucleolar Pattern Cancelled KHALIDA Spindle Sukhi Pattern Cancelled KHALIDA Midbody Pattern Cancelled KHALIDA Centriole Pattern Cancelled KHALIDA Nuclear Dot Pattern Cancelled KHALIDA PCNA Pattern Cancelled KHALIDA Nuclear Membr Pat Cancelled KHALIDA Speckled Pattern Cancelled KHALIDA Centromere Pattern Cancelled HIV 1&2 Antibody Screen HIV P24 Antigen Anti-A Titer Blood Type Antibody Screen Crossmatch 10/10/18 10/10/18 10/10/18 06:12 07:55 08:35 WBC RBC Hgb Hct MCV MCH MCHC RDW Plt Count MPV Absolute Neuts (auto) Neutrophils % Lymphocytes % Monocytes % Eosinophils % Basophils % Nucleated RBC % Platelet Estimate Platelet Comment Retic Count PT with INR INR PTT (Actin FS) Fibrinogen Sodium Potassium Chloride Carbon Dioxide Anion Gap BUN Creatinine Est GFR (CKD-EPI)AfAm Est GFR (CKD-EPI)NonAf POC Glucometer 219 Random Glucose Hemoglobin A1c % Calcium Phosphorus Magnesium Total Bilirubin AST ALT Alkaline Phosphatase Creatine Kinase Troponin I Total Protein Albumin Urine Color Urine Appearance Urine pH Ur Specific Rainbow Urine Protein Urine Glucose (UA) Urine Ketones Urine Blood Urine Nitrite Urine Bilirubin Urine Urobilinogen Ur Leukocyte Esterase Stool Occult Blood Positive KHALIDA Screen KHALIDA Homogeneous Pattern KHALIDA Nucleolar Pattern KHALIDA Spindle Sukhi Pattern KHALIDA Midbody Pattern KHALIDA Centriole Pattern KHALIDA Nuclear Dot Pattern KHALIDA PCNA Pattern KHALIDA Nuclear Membr Pat KHALIDA Speckled Pattern KHALIDA Centromere Pattern HIV 1&2 Antibody Screen Negative HIV P24 Antigen Negative Anti-A Titer Blood Type Antibody Screen Crossmatch Active Medications Generic Name Dose Route Start Last Admin Trade Name Freq PRN Reason Stop Dose Admin Acetaminophen 1,000 mg 10/10/18 10:00 10/10/18 09:52 Ofirmev Injection - IVPB 10/13/18 10:01 1,000 mg DAILY RADAMES Administration Chlorhexidine Gluconate 1 applic 10/10/18 22:00 Hibiclens For Decolonization - TP HS RADAMES Dexamethasone Sodium Phosphate 40 mg 10/10/18 10:00 10/10/18 10:30 Decadron Injection - IVPB 10/14/18 09:59 40 mg DAILY RADAMES Administration Folic Acid 1 mg 10/10/18 10:00 10/10/18 09:19 Folic Acid - PO 1 mg DAILY RADAMES Administration Octreotide Acetate 200 mcg/ 500 mls @ 20.833 mls/hr 10/10/18 00:15 10/10/18 01:38 Octreotide Acetate 1,000 mcg/ IVPB 20.833 mls/hr Dextrose ASDIR RADAMES Administration Lactated Ringer's 1,000 ml in 1,000 mls @ 100 mls/hr 10/10/18 03:30 Lactated Ringers Solution IV ASDIR RADAMES Immune Globulin 30 gm in 300 mls @ 75 mls/hr 10/10/18 08:45 Gammagard Liquid 10% Vial IVPB 10/10/18 12:44 ONCE ONE Protocol Nafcillin Sodium 2 gm/ 100 mls @ 100 mls/hr 10/10/18 10:00 Dextrose IVPB Q4H-IV RADAMES Protocol Immune Globulin 400 mls @ 100 mls/hr 10/11/18 10:00 Privigen 10% Vial IVPB 10/14/18 13:59 DAILY RADAMES Mupirocin 1 applic 10/10/18 10:00 Bactroban Ointment (For Decolonization) - NS 10/15/18 09:59 BID RADAMES Pantoprazole Sodium 40 mg 10/10/18 10:00 10/10/18 09:19 Protonix Iv IVPUSH 40 mg BID RADAMES Administration Thiamine HCl 100 mg 10/10/18 10:00 10/10/18 09:19 Vitamin B1 - PO 100 mg DAILY RADAMES Administration ASSESSMENT/PLAN: 73 year old male with a past medical history of non-insulin dependent diabetes mellitus, ethanol abuse (last drink 3 weeks ago), DANNA on CPAP initially presented for hematemesis/melena and admitted to ICU for acute blood loss anemia 2/2 likely upper GI bleed Neurologic: -no acute issues Cardiovascular: -currently hemodynamically stable with BP MAPs around 65 -s/p 1U PRBCs with second unit hanging -NASREEN performed at [facility] without vegetations, TTE non-satisfactory -tachycardia improved, now rate 90, likely 2/2 hypovolemia -repeat echo Pulmonary -no acute issues -DANNA, CPAP at night -CXR without any infiltrates Gastrointestinal #Acute upper gastrointestinal hemorrhage, appears to be improving without any further episodes of vomiting -patient has picture of cirrhosis or early cirrhosis given low platelets, elevated INR, low protein/albumin -therefore this could be as a result of bleeding varices vs. 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 However, with patient's drinking history and recent sepsis/bacteremia on antibiotics, could have multiple etiologies; not convinced for overt thrombocytopenia, will see how patient responds to platelet transfusions -platelet count was 272 on October 02 2018 when discharged from [facility] -transfusing 3U platelets, repeating H&H at noon and 6pm -will give 40gm IVIG for 5 days, to be given over 4-6 hours -dexamethasone 10mg q4-6hrs -benadryl 25 prior to IVIG infusion -tylenol IV prior to IVIG -Heme/onc consulted #Anemia: acute blood loss from upper GI bleed -transfuse to hgb goal of 7 -FFP given #Retroperitoneal Lymphadenopathy: had biopsy done at [facility] -biopsy negative at [place] Infectious Disease #Sepsis 2/2 pneumonia and staph aureus bacteremia: had prolonged hospitalization at [facility] with multiple positive blood cultures -PICC line was inserted prior to discharge -patient was sent to rehab/shelter ([facility]) on Nafcillin 2gm q4h for 3 additional weeks, to end on 10/22/18 (3 weeks after discharge) -repeating blood and urine cultures to confirm negativity -TTE non-confirmatory from [place] with valves not visualized, NASREEN was done ( we do not have that report) and was allegedly negative for vegetations -will repeat TTE here to assess for bactermia -CXR negative for infiltrate -wounds on b/l calf are non-draining -continue nafcillin 2gm -ID consultation Renal #Pre-renal azotemia: likely 2/2 hypovolemia from acute blood loss -hydrate/transfuse and repeat labs in AM -baseline creatinine ~normal, on discharge from [place], creatinine was 0.86 and before coming to the hospital here, his creatinine was stable at 0.9 from [facility] Endocrinology #NIDDM -holding metformin -BGM q6h -ISS q6h very low dose FEN -replete fluids/transfuse monitor electrolytes and replete as needed NPO for now DVT Ppx. SCDs Protonix Dispo: We will continue to follow the patient. Thank you for this consultative opportunity. Full Code Visit type - Emergency Visit Emergency Visit: No - New Patient This patient is new to me today: No - Critical Care Critical Care patient: Yes Total Critical Care Time (in minutes): 40 Critical Care Statement: The care of this patient involved high complexity decision making to prevent further life threatening deterioration of the patient 's condition and/or to evaluate & treat vital organ system(s) failure or risk of failure. ATTENDING PHYSICIAN STATEMENT I saw and evaluated the patient. I reviewed the resident's note and discussed the case with the resident. I agree with the resident's findings and plan as documented. SUBJECTIVE: OBJECTIVE: ASSESSMENT AND PLAN:
[2018-10-10] MEDS: NAFCILLIN - 2 GM in DEXTROSE 5%-WATER - 100 ML IVPB SCH ×4 (11:11→21:32)
--- NOTE | 2018-10-10 11:18 | CONSULT ---
Consultation: HEME/ONC HISTORY OF PRESENT ILLNESS: Patient is a 73 yo M with a PMHx of alcohol abuse, DANNA, presented to the ED after experiencing 2 episodes of hematemesis yesterday. He said he had an episode in the morning and in the afternoon that filled half the sink with blood , which prompted him to go to the hospital. Patient said he never experienced anything like this before in the past. Patient also says he's had black tarry stools over the last 4 days. His daughter says he drinks 4 small bottles of Zinfandel every day with an unknown amount of vodka. He says his last drink was on 09/19. He says he was recently discharged from [facility] (admitted 09/19-10/02) on IV abx. He has a Picc line and is currently being treated with Nafcillin 2gms every 4 hours for staph bacteremia. Patient currently denies fevers, chills, sob, cough , hematuria, abdominal pain, urinary problems, chest pain, recent travel. In the ED, he was found to have a Hgb of 5.9, Plt of 1000. Family hx: Sister ovarion Ca in her 60's. Sister with Pancreatic Ca in her 70s Father alzheimers [place] background Surgical hx: Total L hip replacement 5 years ago Social Hx: former smoker, quit 10 years ago daily heavy drinker, last drink 09/19 Sexually active 1 partner, in her 70's. No contraception Occupation: retired. former police patrol officer. Last Colonoscopy 2 years ago. Never had an EGD REVIEW OF SYSTEMS: CONSTITUTIONAL: Absent: fever, chills, diaphoresis, generalized weakness, malaise, loss of appetite, weight change HEENT: Absent: rhinorrhea, nasal congestion, throat pain, throat swelling, difficulty swallowing, mouth swelling, ear pain, eye pain, visual changes CARDIOVASCULAR: Absent: chest pain, syncope, palpitations, irregular heart rate, lightheadedness , peripheral edema RESPIRATORY: Absent: cough, shortness of breath, dyspnea with exertion, orthopnea, wheezing, stridor, hemoptysis GASTROINTESTINAL: nausea, vomiting Absent: abdominal pain, abdominal distension, diarrhea, constipation GENITOURINARY: Absent: dysuria, frequency, urgency, hesitancy, flank pain, genital pain SKIN: rash in L groin Absent: itching, pallor HEMATOLOGIC/IMMUNOLOGIC: Absent: easy bleeding, easy bruising, lymphadenopathy, frequent infections NEUROLOGIC: Absent: headache, focal weakness or paresthesias, dizziness, unsteady gait, seizure, mental status changes, bladder or bowel incontinence PHYSICAL EXAMINATION Vital Signs - 24 hr 10/09/18 10/10/18 10/10/18 22:02 01:55 02:10 Temperature 99.4 F 99.0 F Pulse Rate 110 H Pulse Rate [ 113 H 102 H Left] Respiratory 20 19 19 Rate Blood Pressure 98/52 L Blood Pressure 75/52 L 83/51 L [Left Arm] O2 Sat by Pulse 97 100 100 Oximetry (%) 10/10/18 10/10/18 10/10/18 02:45 03:39 05:01 Temperature 98.8 F 98.8 F 98.8 F Pulse Rate 123 H 122 H 118 H Pulse Rate [ Left] Respiratory 19 22 H 20 Rate Blood Pressure 86/47 L 154/73 91/52 L Blood Pressure [Left Arm] O2 Sat by Pulse Oximetry (%) 10/10/18 10/10/18 10/10/18 05:47 07:47 08:00 Temperature 98.8 F 98.8 F Pulse Rate 92 H 92 H 95 H Pulse Rate [ Left] Respiratory 20 20 21 H Rate Blood Pressure 105/59 L 105/59 L 99/55 L Blood Pressure [Left Arm] O2 Sat by Pulse Oximetry (%) 10/10/18 10/10/18 09:00 10:00 Temperature 98.2 F Pulse Rate 94 H 95 H Pulse Rate [ Left] Respiratory 19 11 Rate Blood Pressure 95/43 L 99/45 L Blood Pressure [Left Arm] O2 Sat by Pulse Oximetry (%) GENERAL: Awake, alert, and fully oriented, in no acute distress. HEAD: Normal with no signs of trauma. EYES: clear conjunctiva, EOMI, PERRL, anicteric NECK: Normal range of motion, supple without lymphadenopathy, JVD, or masses. LUNGS: Breath sounds equal, clear to auscultation bilaterally. No wheezes, and no crackles. HEART: RRR, normal S1 and S2 without murmur, rub or gallop. ABDOMEN: Obese, Soft, nontender, not distended, normoactive bowel sounds, no guarding, no rebound, no masses. rash vs petichaie in the L groin. EXTREMITIES: 2+ pulses, petichiae in LE, Chronic venous stasis changes bilaterally. Some bleeding at the hodge where SCDs are placed. TESTES: no palpable masses, no tenderness, no bleeding or discharge Laboratory Results - last 24 hr 10/09/18 10/09/18 10/09/18 22:41 22:41 22:41 WBC 13.3 H RBC 1.91 L Hgb 5.9 L* Hct 18.0 L MCV 94.6 MCH 31.0 MCHC 32.8 RDW 15.4 Plt Count 3 L* MPV 9.1 Absolute Neuts (auto) 10.5 H Neutrophils % 79.0 Lymphocytes % 14.0 Monocytes % 5.8 Eosinophils % 0.7 Basophils % 0.5 Nucleated RBC % 0 Platelet Estimate Markedly decrease Platelet Comment No clumping noted Retic Count 5.43 H PT with INR 18.00 H INR 1.52 H PTT (Actin FS) Fibrinogen Sodium 139 Potassium 5.0 Chloride 106 Carbon Dioxide 18 L Anion Gap 14 BUN 57.3 H Creatinine 1.4 H Est GFR (CKD-EPI)AfAm 56.96 Est GFR (CKD-EPI)NonAf 49.14 POC Glucometer Random Glucose 167 H Hemoglobin A1c % Calcium 8.1 L Phosphorus Magnesium Total Bilirubin 0.7 AST 14 L ALT 20 Alkaline Phosphatase 68 Creatine Kinase 84 Troponin I < 0.02 Total Protein 5.8 L Albumin 2.6 L Urine Color Urine Appearance Urine pH Ur Specific [place] Urine Protein Urine Glucose (UA) Urine Ketones Urine Blood Urine Nitrite Urine Bilirubin Urine Urobilinogen Ur Leukocyte Esterase Stool Occult Blood KHALIDA Screen KHALIDA Homogeneous Pattern KHALIDA Nucleolar Pattern KHALIDA Spindle Sukhi Pattern KHALIDA Midbody Pattern KHALIDA Centriole Pattern KHALIDA Nuclear Dot Pattern KHALIDA PCNA Pattern KHALIDA Nuclear Membr Pat KHALIDA Speckled Pattern KHALIDA Centromere Pattern HIV 1&2 Antibody Screen HIV P24 Antigen Anti-A Titer Blood Type Antibody Screen Crossmatch 10/09/18 10/09/18 10/10/18 22:41 22:45 00:40 WBC RBC Hgb Hct MCV MCH MCHC RDW Plt Count MPV Absolute Neuts (auto) Neutrophils % Lymphocytes % Monocytes % Eosinophils % Basophils % Nucleated RBC % Platelet Estimate Platelet Comment Retic Count PT with INR INR PTT (Actin FS) Fibrinogen Sodium Potassium Chloride Carbon Dioxide Anion Gap BUN Creatinine Est GFR (CKD-EPI)AfAm Est GFR (CKD-EPI)NonAf POC Glucometer Random Glucose Hemoglobin A1c % Calcium Phosphorus Magnesium Total Bilirubin AST ALT Alkaline Phosphatase Creatine Kinase Troponin I Total Protein Albumin Urine Color Urine Appearance Urine pH Ur Specific [place] Urine Protein Urine Glucose (UA) Urine Ketones Urine Blood Urine Nitrite Urine Bilirubin Urine Urobilinogen Ur Leukocyte Esterase Stool Occult Blood Positive KHALIDA Screen KHALIDA Homogeneous Pattern KHALIDA Nucleolar Pattern KHALIDA Spindle Sukhi Pattern KHALIDA Midbody Pattern KHALIDA Centriole Pattern KHALIDA Nuclear Dot Pattern KHALIDA PCNA Pattern KHALIDA Nuclear Membr Pat KHALIDA Speckled Pattern KHALIDA Centromere Pattern HIV 1&2 Antibody Screen HIV P24 Antigen Anti-A Titer Cancelled Blood Type O POSITIVE Cancelled Antibody Screen Negative Cancelled Crossmatch See Detail See Detail 10/10/18 10/10/18 10/10/18 00:40 00:40 06:00 WBC 13.2 H RBC 1.68 L Hgb 5.2 L* Hct 16.0 L MCV 95.1 MCH 30.9 MCHC 32.5 RDW 15.1 Plt Count 1 L* D MPV 12.0 H D Absolute Neuts (auto) Neutrophils % Lymphocytes % Monocytes % Eosinophils % Basophils % Nucleated RBC % Platelet Estimate Platelet Comment Retic Count PT with INR INR PTT (Actin FS) Fibrinogen Sodium Potassium Chloride Carbon Dioxide Anion Gap BUN Creatinine Est GFR (CKD-EPI)AfAm Est GFR (CKD-EPI)NonAf POC Glucometer Random Glucose Hemoglobin A1c % Calcium Phosphorus Magnesium Total Bilirubin AST ALT Alkaline Phosphatase Creatine Kinase Troponin I Total Protein Albumin Urine Color Yellow Urine Appearance Clear Urine pH 5.0 Ur Specific [place] 1.009 L Urine Protein Negative Urine Glucose (UA) Negative Urine Ketones Negative Urine Blood Negative Urine Nitrite Negative Urine Bilirubin Negative Urine Urobilinogen 0.2 Ur Leukocyte Esterase Negative Stool Occult Blood KHALIDA Screen KHALIDA Homogeneous Pattern KHALIDA Nucleolar Pattern KHALIDA Spindle Sukhi Pattern KHALIDA Midbody Pattern KHALIDA Centriole Pattern KHALIDA Nuclear Dot Pattern KHALIDA PCNA Pattern KHALIDA Nuclear Membr Pat KHALIDA Speckled Pattern KHALIDA Centromere Pattern HIV 1&2 Antibody Screen HIV P24 Antigen Anti-A Titer Blood Type O POSITIVE Antibody Screen Crossmatch 10/10/18 10/10/18 10/10/18 06:12 06:12 06:12 WBC 10.7 H RBC 1.83 L Hgb 5.8 L* Hct 16.9 L MCV 92.6 MCH 31.8 MCHC 34.4 RDW 15.0 Plt Count 13 L* D MPV 6.8 L D Absolute Neuts (auto) 7.7 Neutrophils % 72.0 Lymphocytes % 15.9 Monocytes % 8.8 Eosinophils % 2.6 D Basophils % 0.7 Nucleated RBC % 0 Platelet Estimate Platelet Comment Retic Count PT with INR 17.40 H INR 1.47 H PTT (Actin FS) 34.4 Fibrinogen Sodium 140 Potassium 4.6 Chloride 106 Carbon Dioxide 22 Anion Gap 12 BUN 63.2 H Creatinine 1.5 H Est GFR (CKD-EPI)AfAm 52.40 Est GFR (CKD-EPI)NonAf 45.21 POC Glucometer Random Glucose 227 H Hemoglobin A1c % Calcium 7.9 L Phosphorus 3.2 Magnesium 1.5 L Total Bilirubin 0.8 AST 17 ALT 21 Alkaline Phosphatase 59 Creatine Kinase Troponin I Total Protein 5.5 L Albumin 2.5 L Urine Color Urine Appearance Urine pH Ur Specific [place] Urine Protein Urine Glucose (UA) Urine Ketones Urine Blood Urine Nitrite Urine Bilirubin Urine Urobilinogen Ur Leukocyte Esterase Stool Occult Blood KHALIDA Screen KHALIDA Homogeneous Pattern KHALIDA Nucleolar Pattern KHALIDA Spindle Sukhi Pattern KHALIDA Midbody Pattern KHALIDA Centriole Pattern KHALIDA Nuclear Dot Pattern KHALIDA PCNA Pattern KHALIDA Nuclear Membr Pat KHAILDA Speckled Pattern KHALIDA Centromere Pattern HIV 1&2 Antibody Screen HIV P24 Antigen Anti-A Titer Blood Type Antibody Screen Crossmatch 10/10/18 10/10/18 10/10/18 06:12 06:12 06:12 WBC RBC Hgb Hct MCV MCH MCHC RDW Plt Count MPV Absolute Neuts (auto) Neutrophils % Lymphocytes % Monocytes % Eosinophils % Basophils % Nucleated RBC % Platelet Estimate Platelet Comment Retic Count PT with INR INR PTT (Actin FS) Fibrinogen 264.0 Sodium Potassium Chloride Carbon Dioxide Anion Gap BUN Creatinine Est GFR (CKD-EPI)AfAm Est GFR (CKD-EPI)NonAf POC Glucometer Random Glucose Hemoglobin A1c % 6.6 H Calcium Phosphorus Magnesium Total Bilirubin AST ALT Alkaline Phosphatase Creatine Kinase Troponin I Total Protein Albumin Urine Color Urine Appearance Urine pH Ur Specific [place] Urine Protein Urine Glucose (UA) Urine Ketones Urine Blood Urine Nitrite Urine Bilirubin Urine Urobilinogen Ur Leukocyte Esterase Stool Occult Blood KHALIDA Screen Cancelled KHALIDA Homogeneous Pattern Cancelled KHALIDA Nucleolar Pattern Cancelled KHALIDA Spindle Sukhi Pattern Cancelled KHALIDA Midbody Pattern Cancelled KHALIDA Centriole Pattern Cancelled KHALIDA Nuclear Dot Pattern Cancelled KHALIDA PCNA Pattern Cancelled KHALIDA Nuclear Membr Pat Cancelled KHALIDA Speckled Pattern Cancelled KHALIDA Centromere Pattern Cancelled HIV 1&2 Antibody Screen HIV P24 Antigen Anti-A Titer Blood Type Antibody Screen Crossmatch 07/09/19 07/09/19 07/09/19 06:12 07:55 08:35 WBC RBC Hgb Hct MCV MCH MCHC RDW Plt Count MPV Absolute Neuts (auto) Neutrophils % Lymphocytes % Monocytes % Eosinophils % Basophils % Nucleated RBC % Platelet Estimate Platelet Comment Retic Count PT with INR INR PTT (Actin FS) Fibrinogen Sodium Potassium Chloride Carbon Dioxide Anion Gap BUN Creatinine Est GFR (CKD-EPI)AfAm Est GFR (CKD-EPI)NonAf POC Glucometer 219 Random Glucose Hemoglobin A1c % Calcium Phosphorus Magnesium Total Bilirubin AST ALT Alkaline Phosphatase Creatine Kinase Troponin I Total Protein Albumin Urine Color Urine Appearance Urine pH Ur Specific [place] Urine Protein Urine Glucose (UA) Urine Ketones Urine Blood Urine Nitrite Urine Bilirubin Urine Urobilinogen Ur Leukocyte Esterase Stool Occult Blood Positive KHALIDA Screen KHALIDA Homogeneous Pattern KHALIDA Nucleolar Pattern KHALIDA Spindle Sukhi Pattern KHALIDA Midbody Pattern KHALIDA Centriole Pattern KHALIDA Nuclear Dot Pattern KHALIDA PCNA Pattern KHALIDA Nuclear Membr Pat KHALIDA Speckled Pattern KHALIDA Centromere Pattern HIV 1&2 Antibody Screen Negative HIV P24 Antigen Negative Anti-A Titer Blood Type Antibody Screen Crossmatch Active Medications Generic Name Dose Route Start Last Admin Trade Name Freq PRN Reason Stop Dose Admin Acetaminophen 1,000 mg 10/10/18 10:00 10/10/18 09:52 Ofirmev Injection - IVPB 10/13/18 10:01 1,000 mg DAILY RADAMES Administration Chlorhexidine Gluconate 1 applic 10/10/18 22:00 Hibiclens For Decolonization - TP HS RADAMES Dexamethasone Sodium Phosphate 40 mg 10/10/18 10:00 10/10/18 10:30 Decadron Injection - IVPB 10/14/18 09:59 40 mg DAILY RADAMES Administration Folic Acid 1 mg 10/10/18 10:00 10/10/18 09:19 Folic Acid - PO 1 mg DAILY RADAMES Administration Octreotide Acetate 200 mcg/ 500 mls @ 20.833 mls/hr 10/10/18 00:15 10/10/18 01:38 Octreotide Acetate 1,000 mcg/ IVPB 20.833 mls/hr Dextrose ASDIR RADAMES Administration Lactated Ringer's 1,000 ml in 1,000 mls @ 100 mls/hr 10/10/18 03:30 Lactated Ringers Solution IV ASDIR RADAMES Immune Globulin 30 gm in 300 mls @ 75 mls/hr 10/10/18 08:45 Gammagard Liquid 10% Vial IVPB 10/10/18 12:44 ONCE ONE Protocol Nafcillin Sodium 2 gm/ 100 mls @ 100 mls/hr 10/10/18 10:00 Dextrose IVPB Q4H-IV RADAMES Protocol Mupirocin 1 applic 10/10/18 10:00 Bactroban Ointment (For Decolonization) - NS 10/15/18 09:59 BID RADAMES Pantoprazole Sodium 40 mg 10/10/18 10:00 10/10/18 09:19 Protonix Iv IVPUSH 40 mg BID RADAMES Administration Thiamine HCl 100 mg 10/10/18 10:00 10/10/18 09:19 Vitamin B1 - PO 100 mg DAILY RADAMES Administration ASSESSMENT/PLAN: #Severe Thrombocytopenia #ITP #Acute Blood loss Anemia #GI Bleed #Being treated for staph bacteremia #LONNY -Thrombocytopenia likely 2/2 ITP -platelet count was 272 on October 02 2018 when discharged from [facility]. After review of medications, no significant changes in meds. Thrombocytopenia could be result of sepsis. -Hematemesis in the setting of severe thrombocytopenia -patient has picture of cirrhosis or early cirrhosis given low platelets, elevated INR, low protein/albumin -Hepatosplenomegaly on Abd US -s/p 2 U prbc and 6 U platelets ---> Hgb now 6.1 from 5.8. Did not respond appropriately. PLT count still 1000. -Unless we can prove hemostatic response to platelets, little benefit to date of platelet infusion. -2 More units of PRBC ordered -1 FFP ordered after blood transfusion. INR 1.47. -Monitor H&H -Keep Hematrocrit >20 -s/p 1gm medrol -Start decadron 10mg every 6 hours. -Start IVIG 40mg. -ID consult Dispo: We will continue to follow the patient. Thank you for this consultative opportunity. Visit type - Emergency Visit Emergency Visit: Yes ED Registration Date: 10/10/18 Care time: The patient presented to the Emergency Department on the above date and was hospitalized for further evaluation of their emergent condition. - New Patient This patient is new to me today: Yes Date on this admission: 10/11/18 - Critical Care Critical Care patient: No ATTENDING PHYSICIAN STATEMENT I saw and evaluated the patient. I reviewed the resident's note and discussed the case with the resident. I agree with the resident's findings and plan as documented. SUBJECTIVE: OBJECTIVE: ASSESSMENT AND PLAN:
[2018-10-10] MEDS: MUPIROCIN 2% TOPICAL OINTMENT FOR DECOLONIZATION NS SCH ×3 (11:38→22:39)
[2018-10-10] MEDS: INSULIN SLIDING SCALE (NOVOLOG) 1 VIAL SQ SCH ×3 (11:41→22:26)
[2018-10-10 13:19] LABS: MCH 30.3 pg (25.7-33.7); MCHC 34.1 g/dl (32.0-35.9); MEAN CELL VOLUME 88.8 fl (80-96); MEAN PLT VOLUME 11.3 fl (7.5-11.1); RBC 2.02 M/mm3 (4.00-5.60); RDW 15.9 % (11.9-15.9); WHITE BLOOD COUNT 8.7 K/mm3 (4.0-10.0)
[2018-10-10 13:26] LABS: HEMOGLOBIN 6.1 GM/dL (11.7-16.9); PLATELET COUNT 1 K/MM3 (134-434)
--- NOTE | 2018-10-10 14:00 | PN ---
Teaching Attending Note Name of Resident: Betty Gonzales ATTENDING PHYSICIAN STATEMENT I saw and evaluated the patient. I reviewed the resident's note and discussed the case with the resident. I agree with the resident's findings and plan as documented. SUBJECTIVE:asymptomatic. states he has not vomited since arrival to the ER. reports he was treated for PNA at [facility] and infection around his heart. states he is unaware of any other abnormalities during his stay there. reports normal colonoscopy 2 years ago which he reports was done for routine screening. does not recall ever having EGD done. never received blood or platelet transfusions in the past. OBJECTIVE: Last Vital Signs Temp Pulse Resp BP Pulse Ox 98.0 F 93 H 22 H 114/63 100 10/10/18 12:00 10/10/18 12:00 10/10/18 12:00 10/10/18 12:00 10/10/18 02:10 Intake & Output 10/07/18 10/08/18 10/09/18 10/10/18 23:59 23:59 23:59 23:59 Intake Total 1884 Output Total 1500 Balance 384 Weight 244 lb 1.6 oz 240 lb 1.6 oz General NAD CV S1 S2 RRR no murmur/rub/gallop Lungs CTA B/L no wheezing/rales/rhonchi Abdomen soft NT/ND obese no rebound or guarding, unable to palpate spleen. scattered hemangioma Extremities trace pitting edema, chronic venous changes. no warmth. R foot palmar aspect below hallux is punctuate ulcer with serosangenous discharge. no surrounding erythema or tenderness or warmth. does not appear infected. ASSESSMENT AND PLAN: 73yo M wtih PMH DM DANNA on CPAP, continuous ETOH dependence and recent hospitalization at [facility] requiring PICC line and watcher automat long goods IVAbx with Naficillin presented to the ER from [facility] due to hemetemsis and melena 1. Hemetemsis- likely upper GI bleed in setting of severe thrombocytopenia. bleeding has stopped. NPO, IVF, PPI and octreotide ggt. serial Hgb. will need EGD when medically stable. GI on board 2. Severe thrombocytopenia- r/o ITP vs coagulopathy from recent hospital stay. received 2 units platelets. started on IVIG and dex per hematology. awaiting records from [facility] to get recents labs and workup if any was done. serial blood counts .fibrinogen WNL, HIV, Hepatitis panel pending. abdominal u/ s to evaluate spleen 3. Acute blood loss anemia- due to hemetemsis and melena. likely upper GI bleed. concern for esophageal varices vs bleeding ulcer. no bleeding. s/p 1 unit PRBC. will monitor with frequent labs. correct as above. check iron studies. retic count noted to be elevated. hematology on board 4. LONNY- likely pre-renal due to volume loss. will hydrate. monitor. avoid nephrotoxic agents 5. Recent MSSA infection- obtain records to determine source. received vanco/ zosyn in the ER. agree with broad coverage at this time until more information can be obtained. ID consulted. PICC Line placed at other facility. Cx here obtained 6. Hypomagnesemia- mg IV 7. DM- hold oral agents. ISS nad BGM 8. Continuous ETOH dependence- CIWA 0. no signs of withdrawal. no indication for detox a this time. MVI, thiamine, folate. will address if interested in inpatient rehab when medically stable 9. DANNA on CPAP- pt has own machine bedside 10. DVT ppx- SCD The care of this patient involved high complexity decision making to prevent further life threatening deterioration of the patient's condition and/or to evaluate & treat vital organ system(s) failure or risk of failure. 45 minutes
--- NOTE | 2018-10-10 14:31 | CON.GI ---
Consult Consult Specialty:: GI Referred by:: Hospitalist Service Reason for Consultation:: Hematemesis - History of Present Illness Chief Complaint: Hematemesis History of Present Illness: Patient evaluated in AM. 73M with hsitory of chronic alcohol abuse, drinking upwards of 4-6 drinks per day for multiple years, admitted for evaluation of hematamesis. He states that he was recently admitted to [facility] for 2 weeks and treated for PNA. he was sent to a [place] for rehab. He noted bloody vomitus tuesday and again yesterday. He was admitted to [facility] for further evaluation. He was noted to have bot profound anemia as well as thrombocytopenia. there are no previous labs for review. He states that his strategic accounts manager is Dr. Livingston and that he performed colonoscopy this past june or july. he has never had an upper endoscopy. - History Source History Provided By: Patient, Medical Record Limitations to Obtaining History: No Limitations - Past Medical History Psych: Yes: Addictions (Alcohol) - Past Surgical History Past Surgical History: Yes: Joint Replacement (Left THR) - Alcohol/Substance Use Hx Alcohol Use: Yes History of Substance Use: reports: None - Smoking History Smoking history: Former smoker Have you smoked in the past 12 months: No - Social History Usual Living Arrangement: Alone ADL: Independent Place of : [facility] History of Recent Travel: No Home Medications - Allergies Allergies/Adverse Reactions: Allergies Allergy/AdvReac Type Severity Reaction Status Date / Time No Known Allergies Allergy Verified 10/09/18 22:18 - Home Medications Home Medications: Ambulatory Orders Acetaminophen [Tylenol] 650 mg PO Q6H PRN 10/10/18 Folic Acid - 1 mg PO DAILY 10/10/18 Lisinopril [Zestril] 2.5 mg PO DAILY 10/10/18 Metformin HCl [Glucophage] 1,000 mg PO BID 10/10/18 Nafcillin - 2 gm IV Q4H 10/10/18 Omeprazole 20 mg PO DAILY 10/10/18 Sennosides [Senna Lax] 8.6 mg PO BID 10/10/18 Family Disease History - Family Disease History Family Disease History: Other: Sister (1 with Pancreatic cancer, 1 with colon cancer) Review of Systems - Review of Systems Constitutional: denies: Diaphoresis Cardiovascular: denies: Chest Pain Respiratory: denies: SOB Gastrointestinal: reports: Nausea, Vomiting, Vomiting Blood. denies: Abdominal Pain Physical Exam-GI Vital Signs: Vital Signs Temperature 98.0 F 10/10/18 12:00 Pulse Rate 93 H 10/10/18 12:00 Respiratory Rate 22 H 10/10/18 12:00 Blood Pressure 114/63 10/10/18 12:00 O2 Sat by Pulse Oximetry (%) 100 10/10/18 02:10 Constitutional: Yes: Calm Eyes: No: Sclera Icterus Cardiovascular: Yes: Regular Rate and Rhythm, Murmur (+ holosystolic mutmur at the LSB) Respiratory: Yes: CTA Bilaterally Gastrointestinal Inspection: No: Distention, Scars ...Auscultate: Yes: Normoactive Bowel Sounds ...Palpate: Yes: Hepatomegaly (Prominent right lobe of liver), Soft. No: Splenomegaly, Tenderness ...Percussion: No: Tympanitic ...Rectal Exam: Yes: Other (No external lesions no masses, no blood/melena/stool ) Edema: No (No LE edema) Neurological: Yes: Alert, Oriented Labs: CBC, BMP 10/10/18 12:55 10/10/18 06:12 INR, PTT INR 1.47 (0.83-1.09) H 10/10/18 06:12 Fibrinogen 264.0 mg/dL (238-498) 10/10/18 06:12 Problem List - Problems (1) Hematemesis Assessment/Plan: When patient optimized from hematologic standpoint, EGD can be undertaken to exclude sources of GI bleed such as bleeding ulcer, vessel esophagitis, esophageal/gastric varices. Discussed potential risks of the procedure like but not limited to bleeding, perfroationj requiring surgery to repair, infection and sedation medication effects all of which could be potentially life threatening. Banding of varices was discussed as well. For now: NPO IV Hydration Octreotide drip Protonix drip IV Abx: quiniolone or 4th generation cephalosporin Monitor H/H Keep Hgb7-8 Correct coagulopathy Heme evaluation Adevised patient need for complete alcohol abstinence Code(s): K92.0 - HEMATEMESIS
--- NOTE | 2018-10-10 14:34 | EKG ---
Test Reason : Blood Pressure : / mmHG Vent. Rate : 125 BPM Atrial Rate : 125 BPM P-R Int : 144 ms QRS Dur : 104 ms QT Int : 342 ms P-R-T Axes : 000 -59 100 degrees QTc Int : 493 ms SINUS TACHYCARDIA LEFT AXIS DEVIATION INCOMPLETE RIGHT BUNDLE BRANCH BLOCK ABNORMAL QRS-T ANGLE, CONSIDER PRIMARY T WAVE ABNORMALITY ABNORMAL ECG NO PREVIOUS ECGS AVAILABLE Confirmed by Russell Fuller ([id number]) on 10/10/2018 2:33:51 PM Referred By: Confirmed By:Russell Fuller
--- NOTE | 2018-10-10 14:57 | PN ---
Physical Exam: SUBJECTIVE: Patient seen and examined at bedside. He is feeling slightly dizzy when sitting up in bed. IVIG sent over from [facility]. Pt started on IVIG, steroids , pRBCs & platelets PRN. S/p 1 FFP. Will f/u CBC q6h to monitor Hgb & platelet status. Tachycardia overnight has now resolved. Remains hypotensive (97/56 latest). OBJECTIVE: Vital Signs Period Temp Pulse Resp BP Sys/Hogan Pulse Ox Last 24 Hr 97.9 F-99.4 F 86-123 11-22 75-154/43-73 97-100 GENERAL: AOx3. HEENT: NCAT. Oral petechiae noted on buccal mucosa LUNGS: CTABL. No wheezing noted. No use of access muscles of breathing HEART: Normocardic, hypotensive, S1, S2 without murmurs. Cap refill 2 sec ABDOMEN: Soft, nontender, nondistended, normoactive bowel sounds, no masses. EXTREMITIES: PICC line to LUE. 2+ periph pulses. Mild numbness/ tingling (pt endorses hx of diabetic neuropathy). Rt ball of foot punctation productive of serosanguinous fluid. SKIN: Non-blanching petechiae noted on b/l UE & LE, chest, abdomen, groin. B/l LE hematomas noted Laboratory Results - last 24 hr Laboratory Last Values WBC 8.7 K/mm3 (4.0-10.0) 10/10/18 12:55 RBC 2.02 M/mm3 (4.00-5.60) L 10/10/18 12:55 Hgb 6.1 GM/dL (11.7-16.9) L* 10/10/18 12:55 Hct 18.0 % (35.4-49) L 10/10/18 12:55 MCV 88.8 fl (80-96) 10/10/18 12:55 MCH 30.3 pg (25.7-33.7) 10/10/18 12:55 MCHC 34.1 g/dl (32.0-35.9) 10/10/18 12:55 RDW 15.9 % (11.9-15.9) 10/10/18 12:55 Plt Count 1 K/MM3 (134-434) L* D 10/10/18 12:55 MPV 11.3 fl (7.5-11.1) H D 10/10/18 12:55 Absolute Neuts (auto) 7.7 K/mm3 (1.5-8.0) 10/10/18 06:12 Neutrophils % 72.0 % (42.8-82.8) 10/10/18 06:12 Lymphocytes % 15.9 % (8-40) 10/10/18 06:12 Monocytes % 8.8 % (3.8-10.2) 10/10/18 06:12 Eosinophils % 2.6 % (0-4.5) D 10/10/18 06:12 Basophils % 0.7 % (0-2.0) 10/10/18 06:12 Nucleated RBC % 0 % (0-0) 10/10/18 06:12 Platelet Estimate Markedly decrease 10/09/18 22:41 Platelet Comment No clumping noted 10/09/18 22:41 Retic Count 5.43 % (0.5-1.5) H 10/09/18 22:41 PT with INR 17.40 SEC (9.7-13.0) H 10/10/18 06:12 INR 1.47 (0.83-1.09) H 10/10/18 06:12 PTT (Actin FS) 34.4 SECONDS (25.2-36.5) 10/10/18 06:12 Fibrinogen 264.0 mg/dL (238-498) 10/10/18 06:12 Sodium 140 mmol/L (136-145) 10/10/18 06:12 Potassium 4.6 mmol/L (3.5-5.1) 10/10/18 06:12 Chloride 106 mmol/L (98-107) 10/10/18 06:12 Carbon Dioxide 22 mmol/L (21-32) 10/10/18 06:12 Anion Gap 12 MMOL/L (8-16) 10/10/18 06:12 BUN 63.2 mg/dL (7-18) H 10/10/18 06:12 Creatinine 1.5 mg/dL (0.55-1.3) H 10/10/18 06:12 Est GFR (CKD-EPI)AfAm 52.40 10/10/18 06:12 Est GFR (CKD-EPI)NonAf 45.21 10/10/18 06:12 POC Glucometer 278 UNITS (80-120) 10/10/18 11:27 Random Glucose 227 mg/dL (74-106) H 10/10/18 06:12 Hemoglobin A1c % 6.6 % (4.2-6.3) H 10/10/18 06:12 Calcium 7.9 mg/dL (8.5-10.1) L 10/10/18 06:12 Phosphorus 3.2 mg/dL (2.5-4.9) 10/10/18 06:12 Magnesium 1.5 mg/dL (1.8-2.4) L 10/10/18 06:12 Total Bilirubin 0.8 mg/dL (0.2-1) 10/10/18 06:12 AST 17 U/L (15-37) 10/10/18 06:12 ALT 21 U/L (13-61) 10/10/18 06:12 Alkaline Phosphatase 59 U/L (45-117) 10/10/18 06:12 Creatine Kinase 84 U/L (26-308) 10/09/18 22:41 Troponin I < 0.02 ng/ml (0.00-0.05) 10/09/18 22:41 Total Protein 5.5 g/dl (6.4-8.2) L 10/10/18 06:12 Albumin 2.5 g/dl (3.4-5.0) L 10/10/18 06:12 Urine Color Yellow 10/10/18 06:00 Urine Appearance Clear 10/10/18 06:00 Urine pH 5.0 (5.0-8.0) 10/10/18 06:00 Ur Specific [place] 1.009 (1.010-1.035) L 10/10/18 06:00 Urine Protein Negative (NEGATIVE) 10/10/18 06:00 Urine Glucose (UA) Negative (NEGATIVE) 10/10/18 06:00 Urine Ketones Negative (NEGATIVE) 10/10/18 06:00 Urine Blood Negative (NEGATIVE) 10/10/18 06:00 Urine Nitrite Negative (NEGATIVE) 10/10/18 06:00 Urine Bilirubin Negative (NEGATIVE) 10/10/18 06:00 Urine Urobilinogen 0.2 mg/dL (0.2-1.0) 10/10/18 06:00 Ur Leukocyte Esterase Negative (NEGATIVE) 10/10/18 06:00 Stool Occult Blood Positive (NEGATIVE) 10/10/18 08:35 KHALIDA Screen Cancelled 10/10/18 06:12 KHALIDA Homogeneous Pattern Cancelled 10/10/18 06:12 KHALIDA Nucleolar Pattern Cancelled 10/10/18 06:12 KHALIDA Spindle Sukhi Pattern Cancelled 10/10/18 06:12 KHALIDA Midbody Pattern Cancelled 10/10/18 06:12 KHALIDA Centriole Pattern Cancelled 10/10/18 06:12 KHALIDA Nuclear Dot Pattern Cancelled 10/10/18 06:12 KHALIDA PCNA Pattern Cancelled 10/10/18 06:12 KHALIDA Nuclear Membr Pat Cancelled 10/10/18 06:12 KHALIDA Speckled Pattern Cancelled 10/10/18 06:12 KHALIDA Centromere Pattern Cancelled 10/10/18 06:12 HIV 1&2 Antibody Screen Negative 10/10/18 06:12 HIV P24 Antigen Negative 10/10/18 06:12 Anti-A Titer Cancelled 10/10/18 00:40 Blood Type O POSITIVE 10/10/18 00:40 Antibody Screen Negative 10/09/18 22:41 Crossmatch See Detail 10/10/18 00:40 Active Medications Generic Name Dose Route Start Last Admin Trade Name Freq PRN Reason Stop Dose Admin Acetaminophen 1,000 mg 10/10/18 10:00 10/10/18 09:52 Ofirmev Injection - IVPB 10/13/18 10:01 1,000 mg DAILY RADAMES Administration Chlorhexidine Gluconate 1 applic 10/10/18 22:00 Hibiclens For Decolonization - TP HS RADAMES Dexamethasone Sodium Phosphate 10 mg 10/11/18 09:00 Decadron Injection - IVPB Q6H-IV RADAMES Folic Acid 1 mg 10/10/18 10:00 10/10/18 09:19 Folic Acid - PO 1 mg DAILY RADAMES Administration Octreotide Acetate 200 mcg/ 500 mls @ 20.833 mls/hr 10/10/18 00:15 10/10/18 01:38 Octreotide Acetate 1,000 mcg/ IVPB 20.833 mls/hr Dextrose ASDIR RADAMES Administration Lactated Ringer's 1,000 ml in 1,000 mls @ 100 mls/hr 10/10/18 03:30 10/10/18 11:29 Lactated Ringers Solution IV 100 mls/hr ASDIR RADAMES Administration Nafcillin Sodium 2 gm/ 100 mls @ 100 mls/hr 10/10/18 10:00 10/10/18 11:11 Dextrose IVPB 100 mls/hr Q4H-IV RADAMES Administration Protocol Immune Globulin 400 mls @ 100 mls/hr 10/11/18 10:00 Privigen 10% Vial IVPB 10/14/18 13:59 DAILY RADAMES Immune Globulin 100 mls @ 50 mls/hr 10/10/18 16:00 Privigen 10% Vial IVPB 10/10/18 17:59 ONCE ONE Insulin Aspart 1 vial 10/10/18 11:15 10/10/18 11:41 Novolog Vial Sliding Scale - SQ 2 units Q6H RADAMES Administration Protocol Mupirocin 1 applic 10/10/18 10:00 10/10/18 11:38 Bactroban Ointment (For Decolonization) - NS 10/15/18 09:59 1 applic BID RADAMES Administration Pantoprazole Sodium 40 mg 10/10/18 10:00 10/10/18 09:19 Protonix Iv IVPUSH 40 mg BID RADAMES Administration Thiamine HCl 100 mg 10/10/18 10:00 10/10/18 09:19 Vitamin B1 - PO 100 mg DAILY RADAMES Administration [facility] imaging records: CXR 09/19/18: Patchy bibasilar opacities which may reflect atelectasis or pneumonia CT abd/pelvis w/ contrast 09/22/18: : Conglomerate retroperitoneal portacaval lymphadenopathy which may reflect primary lymphoproliferative disorder. No evidence of fluid collection or abscess CT lumbar spine w/o con 09/22/18: advanced multilevel degenerative changes including severe spinal stenosis @ L4-L5 and L3-L4. Severe bilateral nerual foraminal narrowing from L3-L4 to L5-S1 Abd US 09/22/18: No ascites, hepatic steatosis, trace rt pl effusion Left hip XR 09/22/18: left side total hip arthroplasty. degenerative changes. Rt foot XR 09/25/18: Unremarkable Rt foot MRI 09/28/18: No osteomyelitis ASSESSMENT/PLAN: 73 y.o. M with PMH DANNA, DM, EtOH abuse, obesity presented to [facility] with multiple episodes hematesis and weakness. #GI Bleed 2/2 thrombocytopenia and EtOH abuse -S/p 3U pRBCs, 6U platelets; PRN transfusions -S/p 1 FFP -Fecal occult blood + -CBC q6h; Hgb 5.2>5.8>6.1/ Plt 3>1>13>1 -1L NS in ED, 1L LR @100mL/hrtoday -Protonix 40mg -Octreotide 300mcg -NPO -GI consulted: EGD once pt hemotologically stable. Maintain hGB 7-8. Recs IV quinolone or 4th gen cephalosporin #Possible ITP 2/2 Thrombocytopenia -Given 6U platelets -IVIG 40mg for 5 days -Dexamethasone 10mg q4-6h -Heme/onc consulted #Staph bacteremia 2/2 PNA -C/w Nafcillin for 2 more weeks, stop date 10/22/18 -S/p 1 x Vanc 1g, 2 x Zosyn 2.25g -Monitor vitals -F/u blood cultures -ID on board #LONNY nicolenate d/t volume loss -Trend renal labs -IVF #DM -ISS; Novolog 2U total today -C/w Metformin 1g PO BID #EtOH Abuse -Thiamine 100mg PO daily -Folic acid 1g PO daily -Educated on risks of continued consumption of alcohol #DVT PPX -SCDs #FEN -LR -Monitor lytes -NPO Visit type - Emergency Visit Emergency Visit: No - New Patient This patient is new to me today: No - Critical Care Critical Care patient: No ATTENDING PHYSICIAN STATEMENT I saw and evaluated the patient. I reviewed the resident's note and discussed the case with the resident. I agree with the resident's findings and plan as documented. SUBJECTIVE: OBJECTIVE: ASSESSMENT AND PLAN:
--- NOTE | 2018-10-10 15:52 | ECHO ---
Name: CARI ALLEN Exam:Adult Echocardiogram Study Date: 10/10/2018 12:58 PM Age: 73 yrs Reason For Study: assess valves Height: 74 in Weight: 214 lb BSA: 2.2 m2 BP: 102/60 mmHg MMode/2D Measurements & Calculations IVSd: 0.97 cm Ao root diam: 3.8 cm LVIDd: 5.4 cm LA dimension: 3.2 cm LVIDs: 3.5 cm ACS: 1.8 cm LVPWd: 0.92 cm IVSs: 1.3 cm LVPWs: 1.2 cm EDV(Teich): 138.6 ml ESV(Teich): 49.6 ml Doppler Measurements & Calculations MV E max mer: 92.1 cm/sec Ao V2 max: 111.0 cm/sec MV A max mer: 86.5 cm/sec Ao max P.9 mmHg MV E/A: 1.1 Ao V2 mean: 83.4 cm/sec MV dec time: 0.06 sec Ao mean P.0 mmHg Ao V2 VTI: 23.8 cm TR max mer: 318.7 cm/sec Med Peak E' Mer: 6.8 cm/sec TR max P.7 mmHg Med E/e': 13.6 Lat Peak E' Mer: 10.0 cm/sec Lat E/e': 9.2 Procedure The study was technically limited with all images being suboptimal in quality. Left Ventricle The left ventricular size, thickness and function are normal. Right Ventricle The right ventricle is normal in size and function. Atria Normal left and right atrial size and function. Mitral Valve The mitral valve is normal in structure and function. Tricuspid Valve The tricuspid valve is normal in structure and function. There is mild tricuspid regurgitation. Right ventricular systolic pressure is elevated at 60 mmhg. There is severe pulmonary hypertension. Assumin g the RA pressure is 20 mmHg. Aortic Valve The aortic valve is normal in structure and function. Pulmonic Valve The pulmonic valve is not well visualized. Great Vessels The aortic root is not well visualized. Pericardium/Pleura There is no pericardial effusion. Interpretation Summary The study was technically limited with all images being suboptimal in quality. The left ventricular size, thickness and function are normal The right ventricle is normal in size and function. There is severe pulmonary hypertension. Russell Fuller 10/10/2018 03:51 PM
[2018-10-10] MEDS ORDERED: PATIENT'S OWN MEDICATION (NON-FORMULARY) (Lisinopril [Zestril] 2.5 MG) PO SCH (16:00)
[2018-10-10] MEDS ORDERED: IMMUN GLOB G(IGG)/PRO/IGA 0-50 100 ML IVPB ONE (16:00)
[2018-10-10] MEDS ORDERED: metFORMIN HCL 500 MG TABLET (FP) PO SCH (16:30)
[2018-10-10] MEDS ORDERED: CEFEPIME HCL 1 GM VIAL (RESTRICTED TO ID) ONE ×2 (16:57→21:31)
[2018-10-10] MEDS: CEFEPIME 1 GM in DEXTROSE 5%-WATER - 50 ML IVPB SCH ×2 (17:18→21:32)
[2018-10-10] MEDS ORDERED: CEFEPIME HCL/D5W 2 GM/50 ML BAG IVPB SCH (18:00)
--- NOTE | 2018-10-10 18:08 | PN ---
Teaching Attending Note Name of Resident: Lore Lomas ATTENDING PHYSICIAN STATEMENT I saw and evaluated the patient. I reviewed the resident's note and discussed the case with the resident. I agree with the resident's findings and plan as documented. SUBJECTIVE: Patient seen and examined Chart reviewed . History of alcohol abuse. History of recent hospital admission to [facility] for Staph bacteremia. Treated with Nafcillin. NASREEN- negative at . Underwent retroperitoneal lymph node biopsy - negative for lymphoporliferative disorder. CT at --> RPN , spleen with lesions. Current ultrasound with splenomegaly. Source of Staph not found Transferred to [place] after 3 weeks of antibiotics . Platelets- 252 one week earlier and now 1000K. No new meds administered during this time period. Developed severe hematemesis and melena. Last Vital Signs Temp Pulse Resp BP Pulse Ox 97.5 F L 99 H 17 114/66 100 10/10/18 16:00 10/10/18 16:00 10/10/18 16:00 10/10/18 16:00 10/10/18 02:10 HEENT: RISHI, EOM Intact Oropharynx: No thrush, No mucositis Neck: Supple Nodes: Without adenopathy Cor: RSR, No murmurs, No gallops Lungs: few scattered rales Abd: Soft, Normal bowel sounds, No organomegaly Ext:No significant edema Skin: , Integument intact, LE stasis and petechiae CBC, BMP 10/10/18 12:55 10/10/18 06:12 Current Medications Generic Name Dose Route Start Last Admin Trade Name Freq PRN Reason Stop Dose Admin Acetaminophen 1,000 mg 10/10/18 10:00 10/10/18 09:52 Ofirmev Injection - IVPB 10/13/18 10:01 1,000 mg DAILY RADAMES Administration Chlorhexidine Gluconate 1 applic 10/10/18 22:00 Hibiclens For Decolonization - TP HS RADAMES Dexamethasone Sodium Phosphate 10 mg 10/11/18 09:00 Decadron Injection - IVPB Q6H-IV RADAMES Folic Acid 1 mg 10/10/18 10:00 10/10/18 09:19 Folic Acid - PO 1 mg DAILY RADAMES Administration Octreotide Acetate 200 mcg/ 500 mls @ 20.833 mls/hr 10/10/18 00:15 10/10/18 01:38 Octreotide Acetate 1,000 mcg/ IVPB 20.833 mls/hr Dextrose ASDIR RADAMES Administration Lactated Ringer's 1,000 ml in 1,000 mls @ 100 mls/hr 10/10/18 03:30 10/10/18 11:29 Lactated Ringers Solution IV 100 mls/hr ASDIR RADAMES Administration Nafcillin Sodium 2 gm/ 100 mls @ 100 mls/hr 10/10/18 10:00 10/10/18 15:30 Dextrose IVPB 100 mls/hr Q4H-IV RADAMES Administration Protocol Immune Globulin 400 mls @ 100 mls/hr 10/11/18 10:00 Privigen 10% Vial IVPB 10/14/18 13:59 DAILY RADAMES Cefepime HCl 1 gm/ Dextrose 50 mls @ 100 mls/hr 10/10/18 17:00 10/10/18 17:18 IVPB 100 mls/hr BID RADAMES Administration Protocol Insulin Aspart 1 vial 10/10/18 11:15 10/10/18 17:19 Novolog Vial Sliding Scale - SQ 3 units Q6H RADAMES Administration Protocol Lisinopril 2.5 mg 10/11/18 10:00 Prinivil PO DAILY RADAMES Mupirocin 1 applic 10/10/18 10:00 10/10/18 11:38 Bactroban Ointment (For Decolonization) - NS 10/15/18 09:59 1 applic BID RADAMES Administration Pantoprazole Sodium 40 mg 10/10/18 10:00 10/10/18 09:19 Protonix Iv IVPUSH 40 mg BID RADAMES Administration Thiamine HCl 100 mg 10/10/18 10:00 10/10/18 09:19 Vitamin B1 - PO 100 mg DAILY RADAMES Administration Has received 6 units of packed cells to date and platelets still 1000k Has received 2 units of packed cells with Hb- increased from 5.8---> 6.1 Has received gamma globulin 0.4 mcg/kg . Has received medrol-1000 mg and now decadron 40 mg daily Impression: Acute upper GI bleed Thrombocytopenia- peripheral consumption with no improvement in counts, and with ?? improvement in hemostatic effect. Would continue to transfuse packed cells Continue daily Gamma globulin and steroids Change of antibiotics instituted Unless we can prove hemostatic response to platelets , little benefit to date of platelet infusion. Give FFP after blood infusions. Considering transfer to [facility]. OBJECTIVE: ASSESSMENT AND PLAN:
[2018-10-10 19:07] LABS: HEMATOCRIT 18.3 % (35.4-49); MCH 30.1 pg (25.7-33.7); MCHC 33.7 g/dl (32.0-35.9); MEAN CELL VOLUME 89.4 fl (80-96); MEAN PLT VOLUME 8.9 fl (7.5-11.1); RBC 2.04 M/mm3 (4.00-5.60); RDW 16.3 % (11.9-15.9); WHITE BLOOD COUNT 7.6 K/mm3 (4.0-10.0)
[2018-10-10 19:20] LABS: HEMOGLOBIN 6.2 GM/dL (11.7-16.9)
[2018-10-10 19:21] LABS: PLATELET COUNT 2 K/MM3 (134-434)
--- NOTE | 2018-10-10 19:57 | PN ---
Progress Note (short form) - Note Progress Note: Spoke to [facility] transfer center who reports MICU at [facility] bed 4 is available and is sending transport. Pt's rpt CBC showing 6.2 Hgb and Plt of 2,000. Pt currently remains hemodynamically stable (104/63). FFP being given at bedside. [facility] transport being arranged and ETA about 1hr. Pt being accepted to care of Dr. Mo of the [facility] MICU.
[2018-10-10] MEDS ORDERED: PIPERACILLIN/TAZOB 2.25 GM 2.25 GM in DEXTROSE 5%-WATER - 50 ML IVPB SCH (21:00)
[2018-10-10 21:14] VITALS: TEMP 98
[2018-10-10] MEDS ORDERED: CHLORHEXIDINE GLUCONATE 4% CLEANSER FOR DECOLONIZATION TP SCH (22:00)
[2018-10-10] MEDS ORDERED: PATIENT'S OWN MEDICATION (NON-FORMULARY) (Metformin Hcl [Glucophage] 1,000 MG) PO SCH (22:00)
[2018-10-11 00:07] VITALS: BP 111/65; PULSE 88
[2018-10-11 04:11] LABS: HEP.C VIRUS AB 0.1 s/co ratio (0.0-0.9)
--- NOTE | 2018-10-11 06:08 | DS ---
Physical Exam: SUBJECTIVE: Patient seen and examined OBJECTIVE: Vital Signs Period Temp Pulse Resp BP Sys/Hogan Pulse Ox Last 24 Hr 97.5 F-98.8 F 86-99 11-22 95-123/43-74 PHYSICAL EXAM GENERAL: The patient is awake, alert, and fully oriented, in no acute distress. HEAD: Normal with no signs of trauma. EYES: PERRL, extraocular movements intact, sclera anicteric, conjunctiva clear. ENT: Ears normal, nares patent, oropharynx clear without exudates, moist mucous membranes. NECK: Trachea midline, full range of motion, supple. LUNGS: Breath sounds equal, clear to auscultation bilaterally, no wheezes, no crackles, no accessory muscle use. HEART: Regular rate and rhythm, S1, S2 without murmur, rub or gallop. ABDOMEN: Soft, nontender, nondistended, normoactive bowel sounds, no guarding, no rebound, no hepatosplenomegaly, no masses. EXTREMITIES: 2+ pulses, warm, well-perfused, no edema. NEUROLOGICAL: Cranial nerves II through XII grossly intact. Normal speech, gait not observed. PSYCH: Normal mood, normal affect. SKIN: Warm, dry, normal turgor, no rashes or lesions noted. LABS Laboratory Results - last 24 hr 10/09/18 10/10/18 10/10/18 22:41 00:40 06:00 WBC RBC Hgb Hct MCV MCH MCHC RDW Plt Count MPV Absolute Neuts (auto) Neutrophils % Lymphocytes % Monocytes % Eosinophils % Basophils % Nucleated RBC % PT with INR INR PTT (Actin FS) Fibrinogen Sodium Potassium Chloride Carbon Dioxide Anion Gap BUN Creatinine Est GFR (CKD-EPI)AfAm Est GFR (CKD-EPI)NonAf POC Glucometer Random Glucose Hemoglobin A1c % Calcium Phosphorus Magnesium Total Bilirubin AST ALT Alkaline Phosphatase Total Protein Albumin Urine Color Yellow Urine Appearance Clear Urine pH 5.0 Ur Specific [place] 1.009 L Urine Protein Negative Urine Glucose (UA) Negative Urine Ketones Negative Urine Blood Negative Urine Nitrite Negative Urine Bilirubin Negative Urine Urobilinogen 0.2 Ur Leukocyte Esterase Negative Stool Occult Blood KHALIDA Screen KHALIDA Homogeneous Pattern KHALIDA Nucleolar Pattern KHALIDA Spindle Sukhi Pattern KHALIDA Midbody Pattern KHALIDA Centriole Pattern KHALIDA Nuclear Dot Pattern KHALIDA PCNA Pattern [place] Nuclear Membr Pat KHALIDA Speckled Pattern KHALIDA Centromere Pattern Hepatitis A IgM Ab Hep Bs Antigen Hep B Core IgM Ab Hepatitis C Antibody HIV 1&2 Antibody Screen HIV P24 Antigen Blood Type O POSITIVE Antibody Screen Negative Crossmatch See Detail See Detail 10/10/18 10/10/18 10/10/18 06:12 06:12 06:12 WBC 10.7 H RBC 1.83 L Hgb 5.8 L* Hct 16.9 L MCV 92.6 MCH 31.8 MCHC 34.4 RDW 15.0 Plt Count 13 L* D MPV 6.8 L D Absolute Neuts (auto) 7.7 Neutrophils % 72.0 Lymphocytes % 15.9 Monocytes % 8.8 Eosinophils % 2.6 D Basophils % 0.7 Nucleated RBC % 0 PT with INR INR PTT (Actin FS) Fibrinogen Sodium 140 Potassium 4.6 Chloride 106 Carbon Dioxide 22 Anion Gap 12 BUN 63.2 H Creatinine 1.5 H Est GFR (CKD-EPI)AfAm 52.40 Est GFR (CKD-EPI)NonAf 45.21 POC Glucometer Random Glucose 227 H Hemoglobin A1c % Calcium 7.9 L Phosphorus 3.2 Magnesium 1.5 L Total Bilirubin 0.8 AST 17 ALT 21 Alkaline Phosphatase 59 Total Protein 5.5 L Albumin 2.5 L Urine Color Urine Appearance Urine pH Ur Specific [place] Urine Protein Urine Glucose (UA) Urine Ketones Urine Blood Urine Nitrite Urine Bilirubin Urine Urobilinogen Ur Leukocyte Esterase Stool Occult Blood KHALIDA Screen KHALIDA Homogeneous Pattern K[place] Nucleolar Pattern KHALIDA Spindle Sukhi Pattern KHALIDA Midbody Pattern K[place] Centriole Pattern K[place]IDA Nuclear Dot Pattern KHALIDA PCNA Pattern KHALIDA Nuclear Membr Pat KHALIDA Speckled Pattern KHALIDA Centromere Pattern Hepatitis A IgM Ab Negative Hep Bs Antigen Negative Hep B Core IgM Ab Negative Hepatitis C Antibody 0.1 HIV 1&2 Antibody Screen HIV P24 Antigen Blood Type Antibody Screen Crossmatch 10/10/18 10/10/18 10/10/18 06:12 06:12 06:12 WBC RBC Hgb Hct MCV MCH MCHC RDW Plt Count MPV Absolute Neuts (auto) Neutrophils % Lymphocytes % Monocytes % Eosinophils % Basophils % Nucleated RBC % PT with INR 17.40 H INR 1.47 H PTT (Actin FS) 34.4 Fibrinogen 264.0 Sodium Potassium Chloride Carbon Dioxide Anion Gap BUN Creatinine Est GFR (CKD-EPI)AfAm Est GFR (CKD-EPI)NonAf POC Glucometer Random Glucose Hemoglobin A1c % Calcium Phosphorus Magnesium Total Bilirubin AST ALT Alkaline Phosphatase Total Protein Albumin Urine Color Urine Appearance Urine pH Ur Specific [place] Urine Protein Urine Glucose (UA) Urine Ketones Urine Blood Urine Nitrite Urine Bilirubin Urine Urobilinogen Ur Leukocyte Esterase Stool Occult Blood KHALIDA Screen Cancelled KHALIDA Homogeneous Pattern Cancelled KHALIDA Nucleolar Pattern Cancelled KHALIDA Spindle Sukhi Pattern Cancelled KHALIDA Midbody Pattern Cancelled KHALIDA Centriole Pattern Cancelled KHALIDA Nuclear Dot Pattern Cancelled KHALIDA PCNA Pattern Cancelled KHALIDA Nuclear Membr Pat Cancelled KHALIDA Speckled Pattern Cancelled KHALIDA Centromere Pattern Cancelled Hepatitis A IgM Ab Hep Bs Antigen Hep B Core IgM Ab Hepatitis C Antibody HIV 1&2 Antibody Screen HIV P24 Antigen Blood Type Antibody Screen Crossmatch 10/10/18 10/10/18 10/10/18 06:12 06:12 07:55 WBC RBC Hgb Hct MCV MCH MCHC RDW Plt Count MPV Absolute Neuts (auto) Neutrophils % Lymphocytes % Monocytes % Eosinophils % Basophils % Nucleated RBC % PT with INR INR PTT (Actin FS) Fibrinogen Sodium Potassium Chloride Carbon Dioxide Anion Gap BUN Creatinine Est GFR (CKD-EPI)AfAm Est GFR (CKD-EPI)NonAf POC Glucometer 219 Random Glucose Hemoglobin A1c % 6.6 H Calcium Phosphorus Magnesium Total Bilirubin AST ALT Alkaline Phosphatase Total Protein Albumin Urine Color Urine Appearance Urine pH Ur Specific [place] Urine Protein Urine Glucose (UA) Urine Ketones Urine Blood Urine Nitrite Urine Bilirubin Urine Urobilinogen Ur Leukocyte Esterase Stool Occult Blood KHALIDA Screen KHALIDA Homogeneous Pattern KHALIDA Nucleolar Pattern KHALIDA Spindle Sukhi Pattern KHALIDA Midbody Pattern KHALIDA Centriole Pattern [place] Nuclear Dot Pattern [place] PCNA Pattern K[place] Nuclear Membr Pat KHALIDA Speckled Pattern KHALIDA Centromere Pattern Hepatitis A IgM Ab Hep Bs Antigen Hep B Core IgM Ab Hepatitis C Antibody HIV 1&2 Antibody Screen Negative HIV P24 Antigen Negative Blood Type Antibody Screen Crossmatch 10/10/18 10/10/18 10/10/18 08:35 11:02 11:27 WBC RBC Hgb Hct MCV MCH MCHC RDW Plt Count MPV Absolute Neuts (auto) Neutrophils % Lymphocytes % Monocytes % Eosinophils % Basophils % Nucleated RBC % PT with INR INR PTT (Actin FS) Fibrinogen Sodium Potassium Chloride Carbon Dioxide Anion Gap BUN Creatinine Est GFR (CKD-EPI)AfAm Est GFR (CKD-EPI)NonAf POC Glucometer 263 278 Random Glucose Hemoglobin A1c % Calcium Phosphorus Magnesium Total Bilirubin AST ALT Alkaline Phosphatase Total Protein Albumin Urine Color Urine Appearance Urine pH Ur Specific [place] Urine Protein Urine Glucose (UA) Urine Ketones Urine Blood Urine Nitrite Urine Bilirubin Urine Urobilinogen Ur Leukocyte Esterase Stool Occult Blood Positive KHALIDA Screen KHALIDA Homogeneous Pattern KHALIDA Nucleolar Pattern KHALIDA Spindle Sukhi Pattern KHALIDA Midbody Pattern KHALIDA Centriole Pattern K[place] Nuclear Dot Pattern K[place] PCNA Pattern HKALIDA Nuclear Membr Pat KHALIDA Speckled Pattern KHALIDA Centromere Pattern Hepatitis A IgM Ab Hep Bs Antigen Hep B Core IgM Ab Hepatitis C Antibody HIV 1&2 Antibody Screen HIV P24 Antigen Blood Type Antibody Screen Crossmatch 10/10/18 10/10/18 10/10/18 12:55 17:14 18:30 WBC 8.7 7.6 RBC 2.02 L 2.04 L Hgb 6.1 L* 6.2 L* Hct 18.0 L 18.3 L MCV 88.8 89.4 MCH 30.3 30.1 MCHC 34.1 33.7 RDW 15.9 16.3 H Plt Count 1 L* D 2 L* D MPV 11.3 H D 8.9 D Absolute Neuts (auto) Neutrophils % Lymphocytes % Monocytes % Eosinophils % Basophils % Nucleated RBC % PT with INR INR PTT (Actin FS) Fibrinogen Sodium Potassium Chloride Carbon Dioxide Anion Gap BUN Creatinine Est GFR (CKD-EPI)AfAm Est GFR (CKD-EPI)NonAf POC Glucometer 305 Random Glucose Hemoglobin A1c % Calcium Phosphorus Magnesium Total Bilirubin AST ALT Alkaline Phosphatase Total Protein Albumin Urine Color Urine Appearance Urine pH Ur Specific [place] Urine Protein Urine Glucose (UA) Urine Ketones Urine Blood Urine Nitrite Urine Bilirubin Urine Urobilinogen Ur Leukocyte Esterase Stool Occult Blood KHAL[place] Screen KHAL[place] Homogeneous Pattern K[place] Nucleolar Pattern KHALIDA Spindle [place]hi Pattern K[place] Midbody Pattern K[place] Centriole Pattern K[place] Nuclear Dot Pattern [place] PCNA Pattern K[place] Nuclear Membr Pat KHAL[place] Speckled Pattern KHALIDA Centromere Pattern Hepatitis A IgM Ab Hep Bs Antigen Hep B Core IgM Ab Hepatitis C Antibody HIV 1&2 Antibody Screen HIV P24 Antigen Blood Type Antibody Screen Crossmatch 10/10/18 21:27 WBC RBC Hgb Hct MCV MCH MCHC RDW Plt Count MPV Absolute Neuts (auto) Neutrophils % Lymphocytes % Monocytes % Eosinophils % Basophils % Nucleated RBC % PT with INR INR PTT (Actin FS) Fibrinogen Sodium Potassium Chloride Carbon Dioxide Anion Gap BUN Creatinine Est GFR (CKD-EPI)AfAm Est GFR (CKD-EPI)NonAf POC Glucometer 287 Random Glucose Hemoglobin A1c % Calcium Phosphorus Magnesium Total Bilirubin AST ALT Alkaline Phosphatase Total Protein Albumin Urine Color Urine Appearance Urine pH Ur Specific [place] Urine Protein Urine Glucose (UA) Urine Ketones Urine Blood Urine Nitrite Urine Bilirubin Urine Urobilinogen Ur Leukocyte Esterase Stool Occult Blood KHALIDA Screen KHALIDA Homogeneous Pattern KHALIDA Nucleolar Pattern KHALIDA Spindle [place]hi Pattern KHALIDA Midbody Pattern KHALIDA Centriole Pattern K[place] Nuclear Dot Pattern K[place] PCNA Pattern K[place] Nuclear Membr Pat KHALIDA Speckled Pattern KHALIDA Centromere Pattern Hepatitis A IgM Ab Hep Bs Antigen Hep B Core IgM Ab Hepatitis C Antibody HIV 1&2 Antibody Screen HIV P24 Antigen Blood Type Antibody Screen Crossmatch HOSPITAL COURSE: 73 y.o. M with PMH DANNA, DM, EtOH abuse, obesity presented to [facility] with multiple episodes hematesis and weakness. #GI Bleed 2/2 thrombocytopenia and EtOH abuse -S/p 3U pRBCs, 6U platelets; PRN transfusions -S/p 1 FFP -Fecal occult blood + -CBC q6h; Hgb 5.2>5.8>6.1/ Plt 3>1>13>1 -1L NS in ED, 1L LR @100mL/hrtoday -Protonix 40mg -Octreotide 300mcg -NPO -GI consulted: EGD once pt hemotologically stable. Maintain hGB 7-8. Recs IV quinolone or 4th gen cephalosporin #Possible ITP 2/2 Thrombocytopenia -Given 6U platelets -IVIG 40mg for 5 days -Dexamethasone 10mg q4-6h -Heme/onc consulted #Staph bacteremia 2/2 PNA -C/w Nafcillin for 2 more weeks, stop date 10/22/18 -S/p 1 x Vanc 1g, 2 x Zosyn 2.25g -Monitor vitals -F/u blood cultures -ID on board #LONNY nicolenate d/t volume loss -Trend renal labs -IVF #DM -ISS; Novolog 2U total today -C/w Metformin 1g PO BID #EtOH Abuse -Thiamine 100mg PO daily -Folic acid 1g PO daily -Educated on risks of continued consumption of alcohol #DVT PPX -SCDs #FEN -LR -Monitor lytes -NPO Date of Admission:10/10/18 Date of Discharge: 10/11/18 <Stefan Ott - Last Filed: 10/11/18 06:06> Physical Exam: SUBJECTIVE: Patient seen and examined at bedside. Feeling dizzy when sitting up in bed. Continues to have BRBPR. Receiving IVIG and steroids, transfusions PRN. Vitals stable. OBJECTIVE: GENERAL: AOx3. HEENT: NCAT. Oral petechiae noted on buccal mucosa LUNGS: CTABL. No wheezing noted. No use of access muscles of breathing HEART: RRR. S1, S2 without murmurs. Cap refill 2 sec ABDOMEN: Soft, nontender, nondistended, normoactive bowel sounds, no masses. EXTREMITIES: PICC line to LUE. 2+ periph pulses. Mild numbness/ tingling (pt endorses hx of diabetic neuropathy). Rt ball of foot punctation productive of serosanguinous fluid. SKIN: Non-blanching petechiae noted on b/l UE & LE, chest, abdomen, groin. B/l LE hematomas noted Laboratory Last Values WBC 7.6 K/mm3 (4.0-10.0) 10/10/18 18:30 RBC 2.04 M/mm3 (4.00-5.60) L 10/10/18 18:30 Hgb 6.2 GM/dL (11.7-16.9) L* 10/10/18 18:30 Hct 18.3 % (35.4-49) L 10/10/18 18:30 MCV 89.4 fl (80-96) 10/10/18 18:30 MCH 30.1 pg (25.7-33.7) 10/10/18 18:30 MCHC 33.7 g/dl (32.0-35.9) 10/10/18 18:30 RDW 16.3 % (11.9-15.9) H 10/10/18 18:30 Plt Count 2 K/MM3 (134-434) L* D 10/10/18 18:30 MPV 8.9 fl (7.5-11.1) D 10/10/18 18:30 Absolute Neuts (auto) 7.7 K/mm3 (1.5-8.0) 10/10/18 06:12 Neutrophils % 72.0 % (42.8-82.8) 10/10/18 06:12 Lymphocytes % 15.9 % (8-40) 10/10/18 06:12 Monocytes % 8.8 % (3.8-10.2) 10/10/18 06:12 Eosinophils % 2.6 % (0-4.5) D 10/10/18 06:12 Basophils % 0.7 % (0-2.0) 10/10/18 06:12 Nucleated RBC % 0 % (0-0) 07/09/19 06:12 Platelet Estimate Markedly decrease 10/09/18 22:41 Platelet Comment No clumping noted 10/09/18 22:41 Retic Count 5.43 % (0.5-1.5) H 10/09/18 22:41 PT with INR 17.40 SEC (9.7-13.0) H 10/10/18 06:12 INR 1.47 (0.83-1.09) H 10/10/18 06:12 PTT (Actin FS) 34.4 SECONDS (25.2-36.5) 10/10/18 06:12 Fibrinogen 264.0 mg/dL (238-498) 10/10/18 06:12 Fibrin Degrad Products 5 ug/mL (<5) H 10/10/18 06:12 Sodium 140 mmol/L (136-145) 10/10/18 06:12 Potassium 4.6 mmol/L (3.5-5.1) 10/10/18 06:12 Chloride 106 mmol/L (98-107) 10/10/18 06:12 Carbon Dioxide 22 mmol/L (21-32) 10/10/18 06:12 Anion Gap 12 MMOL/L (8-16) 10/10/18 06:12 BUN 63.2 mg/dL (7-18) H 10/10/18 06:12 Creatinine 1.5 mg/dL (0.55-1.3) H 10/10/18 06:12 Est GFR (CKD-EPI)AfAm 52.40 10/10/18 06:12 Est GFR (CKD-EPI)NonAf 45.21 10/10/18 06:12 POC Glucometer 287 UNITS (80-120) 10/10/18 21:27 Random Glucose 227 mg/dL (74-106) H 10/10/18 06:12 Hemoglobin A1c % 6.6 % (4.2-6.3) H 10/10/18 06:12 Calcium 7.9 mg/dL (8.5-10.1) L 10/10/18 06:12 Phosphorus 3.2 mg/dL (2.5-4.9) 10/10/18 06:12 Magnesium 1.5 mg/dL (1.8-2.4) L 10/10/18 06:12 Total Bilirubin 0.8 mg/dL (0.2-1) 10/10/18 06:12 AST 17 U/L (15-37) 10/10/18 06:12 ALT 21 U/L (13-61) 10/10/18 06:12 Alkaline Phosphatase 59 U/L (45-117) 10/10/18 06:12 Creatine Kinase 84 U/L (26-308) 10/09/18 22:41 Troponin I < 0.02 ng/ml (0.00-0.05) 10/09/18 22:41 Total Protein 5.5 g/dl (6.4-8.2) L 10/10/18 06:12 Albumin 2.5 g/dl (3.4-5.0) L 10/10/18 06:12 Urine Color Yellow 10/10/18 06:00 Urine Appearance Clear 10/10/18 06:00 Urine pH 5.0 (5.0-8.0) 10/10/18 06:00 Ur Specific [place] 1.009 (1.010-1.035) L 10/10/18 06:00 Urine Protein Negative (NEGATIVE) 10/10/18 06:00 Urine Glucose (UA) Negative (NEGATIVE) 10/10/18 06:00 Urine Ketones Negative (NEGATIVE) 10/10/18 06:00 Urine Blood Negative (NEGATIVE) 10/10/18 06:00 Urine Nitrite Negative (NEGATIVE) 10/10/18 06:00 Urine Bilirubin Negative (NEGATIVE) 10/10/18 06:00 Urine Urobilinogen 0.2 mg/dL (0.2-1.0) 10/10/18 06:00 Ur Leukocyte Esterase Negative (NEGATIVE) 10/10/18 06:00 Stool Occult Blood Positive (NEGATIVE) 10/10/18 08:35 KHALIDA Screen Negative (.) 10/10/18 06:12 KHALIDA Homogeneous Pattern Cancelled 10/10/18 06:12 KHALIDA Nucleolar Pattern Cancelled 10/10/18 06:12 KHALIDA Spindle Sukhi Pattern Cancelled 10/10/18 06:12 KHALIDA Midbody Pattern Cancelled 10/10/18 06:12 KHALIDA Centriole Pattern Cancelled 10/10/18 06:12 KHALIDA Nuclear Dot Pattern Cancelled 10/10/18 06:12 KHALIDA PCNA Pattern Cancelled 10/10/18 06:12 KHALIDA Nuclear Membr Pat Cancelled 10/10/18 06:12 KHALIDA Speckled Pattern Cancelled 10/10/18 06:12 KHALIDA Centromere Pattern Cancelled 10/10/18 06:12 Hepatitis A IgM Ab Negative (Negative) 10/10/18 06:12 Hep Bs Antigen Negative (Negative) 10/10/18 06:12 Hep B Core IgM Ab Negative (Negative) 10/10/18 06:12 Hepatitis C Antibody 0.1 s/co ratio (0.0-0.9) 10/10/18 06:12 HIV 1&2 Antibody Screen Negative 10/10/18 06:12 HIV P24 Antigen Negative 10/10/18 06:12 Parvovirus B19 IgG Ab 7.2 index (0.0-0.8) H 10/10/18 18:30 Parvovirus B19 IgM Ab 0.1 index (0.0-0.8) 10/10/18 18:30 Anti-A Titer Cancelled 10/10/18 00:40 Blood Type O POSITIVE 10/10/18 00:40 Antibody Screen Negative 10/09/18 22:41 Crossmatch See Detail 10/10/18 00:40 Hospital course: 73 y.o. M with PMH DANNA, DM, EtOH abuse, obesity presented with multiple episodes hematesis and weakness. Patient had multiple episodes BRBPR while in hospital. S/p 4U pRBCs, 6U platelets, 1 FFP. Patient found to be thrombocytopenic to 1. On IVIG & steroids. Pt was not candidate for EGD d/t hgb and platelet status. Pt continued on Nafcillin from prior PNA diagnosed at [facility]. Decision to transfer to [facility] ICU (under care of Dr. Mo of the [facility] [place] [facility] MICU) made as patients H&H/ plt status not improving. Date of Admission:10/10/18 [facility] imaging records: CXR 09/19/18: Patchy bibasilar opacities which may reflect atelectasis or pneumonia CT abd/pelvis w/ contrast 09/22/18: : Conglomerate retroperitoneal portacaval lymphadenopathy which may reflect primary lymphoproliferative disorder. No evidence of fluid collection or abscess CT lumbar spine w/o con 09/22/18: advanced multilevel degenerative changes including severe spinal stenosis @ L4-L5 and L3-L4. Severe bilateral nerual foraminal narrowing from L3-L4 to L5-S1 Abd US 09/22/18: No ascites, hepatic steatosis, trace rt pl effusion Left hip XR 09/22/18: left side total hip arthroplasty. degenerative changes. Rt foot XR 09/25/18: Unremarkable Rt foot MRI 09/28/18: No osteomyelitis Date of Discharge: 10/11/18 Minutes to complete discharge: 36 <Betty Gonzales - Last Filed: 10/12/18 17:27> Discharge Summary Reason For Visit: GI HEMORRHAGE, ANEMIA, THROMBOCYTOPENIA - Home Medications Comprehensive Discharge Medication List: Ambulatory Orders Acetaminophen [Tylenol] 650 mg PO Q6H PRN 10/10/18 Folic Acid - 1 mg PO DAILY 10/10/18 Lisinopril [Zestril] 2.5 mg PO DAILY 10/10/18 Metformin HCl [Glucophage] 1,000 mg PO BID 10/10/18 Nafcillin - 2 gm IV Q4H 10/10/18 Omeprazole 20 mg PO DAILY 10/10/18 Sennosides [Senna Lax] 8.6 mg PO BID 10/10/18 <Stefan Ott - Last Filed: 10/11/18 06:06> - Home Medications Comprehensive Discharge Medication List: Ambulatory Orders Acetaminophen [Tylenol] 650 mg PO Q6H PRN 10/10/18 Folic Acid - 1 mg PO DAILY 10/10/18 Lisinopril [Zestril] 2.5 mg PO DAILY 10/10/18 Metformin HCl [Glucophage] 1,000 mg PO BID 10/10/18 Nafcillin - 2 gm IV Q4H 10/10/18 Omeprazole 20 mg PO DAILY 10/10/18 Sennosides [Senna Lax] 8.6 mg PO BID 10/10/18 <Betty Gonzales - Last Filed: 10/12/18 17:27> Condition: Guarded - Instructions Diet, Activity, Other Instructions: You are being transferred to [facility] for higher level of care for your low platelets and GI bleed. Disposition: TRANSFER ACUTE CARE/OTHER HOSP This patient is new to me today: No Emergency Visit: No Critical Care patient: No - Discharge Referral Referred to [facility] No <Betty Gonzales - Last Filed: 10/12/18 17:27> ATTENDING PHYSICIAN STATEMENT I saw and evaluated the patient. I reviewed the resident's note and discussed the case with the resident. I agree with the resident's findings and plan as documented. SUBJECTIVE: OBJECTIVE: ASSESSMENT AND PLAN: <Stefan Ott - Last Filed: 10/11/18 06:06> ATTENDING PHYSICIAN STATEMENT I saw and evaluated the patient. I reviewed the resident's note and discussed the case with the resident. I agree with the resident's findings and plan as documented. SUBJECTIVE: OBJECTIVE: ASSESSMENT AND PLAN: <Betty Gonzales - Last Filed: 10/12/18 17:27>
[2018-10-11] MEDS ORDERED: DEXAMETHASONE SOD PHOSPHATE 10 MG/1 ML VIAL IVPB SCH (09:00)
[2018-10-11] MEDS ORDERED: LISINOPRIL 5 MG TABLET (FP) PO SCH (10:00)
[2018-10-11] MEDS ORDERED: IMMUN GLOB G(IGG)/PRO/IGA 0-50 400 ML IVPB SCH (10:00)
[2018-10-12 17:11] LABS: PARV B19 IGG 7.2 index (0.0-0.8); PARV B19 IGM 0.1 index (0.0-0.8)
== END 2018-10-11 00:20 | disposition short-term general hospital (02) | DRG 813 ==
LOC: JER 22:02 → JERBED 10-10 00:57 → JICU 10-10 02:30
PROVIDERS: ADMIT Internal Medicine; ATTEND Internal Medicine
PROC: 30233N1 Transfusion of Nonautologous Red Blood Cells into Peripheral Vein, Percutaneous Approach (ICD-10-PCS; principal; 2018-10-10)
PROC: 30233R1 Transfusion of Nonautologous Platelets into Peripheral Vein, Percutaneous Approach (ICD-10-PCS; 2018-10-10)
DX: D69.6 Thrombocytopenia, unspecified (principal); K92.2 Gastrointestinal hemorrhage, unspecified; D62 Acute posthemorrhagic anemia; N17.9 Acute kidney failure, unspecified; D69.3 Immune thrombocytopenic purpura; E11.9 Type 2 diabetes mellitus without complications; E66.9 Obesity, unspecified; Z68.30 Body mass index [BMI] 30.0-30.9, adult; E83.42 Hypomagnesemia; G47.33 Obstructive sleep apnea (adult) (pediatric); D68.9 Coagulation defect, unspecified; F10.10 Alcohol abuse, uncomplicated
CPT/HCPCS: 36415; 36430; 36511; 71045-TC-FY; 76700-TC; 76775-TC; 80053; 80074; 81003; 82272; 82550; 82962; 83036; 83735; 84100; 84484; 85025; 85027; 85044; 85362; 85384; 85610; 85730; 86038; 86747; 86850; 86900; 86901; 86922; 87040; 87086; 87186; 87389; 93005; 93010; 93306-TC; 99285-25; J0131; J1459; J1569; J7030; P9017; P9034; P9038; P9058

== ENCOUNTER 2020-04-03 15:09 | Emergency (ER) | payer OTHER ==
[2020-04-03 15:15] VITALS: BMI 31.4
[2020-04-03 17:27] LABS: BASO % 0.8 % (0-2.0); EOS % 2.5 % (0-4.5); HEMOGLOBIN 11.2 GM/dL (11.7-16.9); LYMPH % 16.9 % (8-40); MCH 28.4 pg (25.7-33.7); MCHC 32.2 g/dl (32.0-35.9); MEAN CELL VOLUME 88.5 fl (80-96); MEAN PLT VOLUME 8.4 fl (7.5-11.1); MONO % 12.2 % (3.8-10.2); NEUT % 67.6 % (42.8-82.8); PLATELET COUNT 306 K/MM3 (134-434); RBC 3.95 M/mm3 (4.00-5.60); RDW 17.9 % (11.9-15.9); WHITE BLOOD COUNT 7.6 K/mm3 (4.0-10.0)
[2020-04-03 17:38] LABS: CHLORIDE 104 mmol/L (98-107); SODIUM 139 mmol/L (136-145)
[2020-04-03 17:40] LABS: CALCIUM 9.1 mg/dL (8.5-10.1)
[2020-04-03 17:41] LABS: ALBUMIN 3.2 g/dl (3.4-5.0); ANION GAP 6 MMOL/L (8-16); BLOOD UREA NITROGEN 12.6 mg/dL (7-18); CO2 29 mmol/L (21-32); GLUCOSE,RANDOM 88 mg/dL (74-106)
[2020-04-03 17:44] LABS: CREATININE 0.8 mg/dL (0.55-1.3); SGOT/AST 132 U/L (15-37); SGPT/ALT 95 U/L (13-61)
[2020-04-03 17:46] LABS: BILIRUBIN,TOTAL 0.8 mg/dL (0.2-1); TOT PROT 8.2 g/dl (6.4-8.2)
[2020-04-03 17:47] LABS: ALK PHOS 295 U/L (45-117)
[2020-04-03 17:49] LABS: N-TERMINAL BNP 109.1 pg/ml (5-450)
[2020-04-03] MEDS ORDERED: FUROSEMIDE 40 MG/4 ML INJECTABLE VIAL ONE ×2 (18:37→19:43)
[2020-04-03] MEDS: FUROSEMIDE 40 MG/4 ML INJECTABLE VIAL IVPUSH ONE ×2 (18:39→20:03)
[2020-04-03 20:32] LABS: EPI CELLS 2 /uL (0-25.1); HYALINE CASTS 0 /uL (0-3.1); URINE APPEARANCE CLEAR; URINE BACTERIA 7 /uL (0-1359); URINE BILIRUBIN NEGATIVE (NEGATIVE); URINE COLOR YELLOW; URINE GLUCOSE (UA) NEGATIVE (NEGATIVE); URINE KETONE NEGATIVE (NEGATIVE); URINE LEUK ESTERASE NEGATIVE (NEGATIVE); URINE NITRITE NEGATIVE (NEGATIVE); URINE PROTEIN 1+ (NEGATIVE); URINE RBC 4 /uL (0-23.9); URINE WBC 2 /uL (0-25.8)
[2020-04-03 20:59] VITALS: BP 144/91; PULSE 112; TEMP 98.7
== END 2020-04-03 21:55 | disposition home or self-care (01) ==
LOC: JER 15:09
PROC: 3E033GC Introduction of Other Therapeutic Substance into Peripheral Vein, Percutaneous Approach (ICD-10-PCS; principal; 2020-04-03)
DX: R60.1 Generalized edema (principal); N45.1 Epididymitis
CPT/HCPCS: 36415; 71045-TC-FY; 76870-TC; 80053; 81003; 82550; 83880; 84484; 85025; 93005; 93010; 99285-25; C9803; U0003

== ENCOUNTER 2020-04-16 13:30 | Inpatient (IN) | payer OTHER ==
[2020-04-16 14:25] VITALS: BMI 30.8
[2020-04-16] MEDS ORDERED: DEXAMETHASONE SOD PHOSPHATE 4 MG/1 ML VIAL IVPUSH ONE (16:04)
[2020-04-16] MEDS ORDERED: DEXAMETHASONE SOD PHOSPHATE 10 MG/1 ML VIAL ONE (16:20)
[2020-04-16 16:28] LABS: BASO % 0.3 % (0-2.0); EOS % 0.2 % (0-4.5); HEMATOCRIT 31.3 % (35.4-49); LYMPH % 3.1 % (8-40); MCH 28.7 pg (25.7-33.7); MCHC 31.9 g/dl (32.0-35.9); MEAN CELL VOLUME 89.9 fl (80-96); MEAN PLT VOLUME 8.5 fl (7.5-11.1); MONO % 6.7 % (3.8-10.2); NEUT % 89.7 % (42.8-82.8); PLATELET COUNT 232 K/MM3 (134-434); RBC 3.48 M/mm3 (4.00-5.60); RDW 19.5 % (11.9-15.9); WHITE BLOOD COUNT 16.7 K/mm3 (4.0-10.0)
[2020-04-16 17:05] LABS: POTASSIUM 4.7 mmol/L (3.5-5.1)
[2020-04-16 17:07] LABS: BLOOD UREA NITROGEN 21.9 mg/dL (7-18); CALCIUM 8.6 mg/dL (8.5-10.1)
[2020-04-16 17:11] LABS: CREATININE 1.6 mg/dL (0.55-1.3)
[2020-04-16 17:12] LABS: BILIRUBIN,TOTAL 1.2 mg/dL (0.2-1); TOT PROT 7.4 g/dl (6.4-8.2)
[2020-04-16 17:15] LABS: N-TERMINAL BNP 767.6 pg/ml (5-450)
[2020-04-16] MEDS ORDERED: CEFTRIAXONE 1,000 MG in DEXTROSE 5%-WATER - 50 ML IVPB ONE (17:56)
[2020-04-16] MEDS ORDERED: CEFTRIAXONE 1 GM/50 ML BAG ONE (17:59)
[2020-04-16 18:41] LABS: INR 1.68 (0.83-1.09)
[2020-04-16 20:08] LABS: URINE APPEARANCE Clear; URINE COLOR Yellow; URINE GLUCOSE (UA) Negative (NEGATIVE); URINE LEUK ESTERASE Negative (NEGATIVE); URINE NITRITE Negative (NEGATIVE)
[2020-04-16 20:24] LABS: EPI CELLS 21.7 /uL (0-25.1); URINE RBC 18.3 /uL (0-23.9); URINE WBC 13.8 /uL (0-25.8)
[2020-04-16 20:25] LABS: HYALINE CASTS 16.95 /uL (0-3.1); URINE BACTERIA 70.7 /uL (0-1359)
[2020-04-16 20:26] LABS: URINE BILIRUBIN Negative (NEGATIVE); URINE KETONE Negative (NEGATIVE); URINE PROTEIN Negative (NEGATIVE); URINE UROBILINOGEN 0.2 mg/dL (0.2-1.0)
[2020-04-16] MEDS ORDERED: GABAPENTIN 400 MG CAPSULE PO ONE (21:58)
[2020-04-17] MEDS ORDERED: PIPERACILLIN/TAZOB 2.25 GM 2.25 GM/50 ML BAG IVPB ONE (02:36)
[2020-04-17] MEDS ORDERED: PIPERACILLIN/TAZOB 3.375 GM 3.375 GM/50 ML BAG IVPB ONE ×3 (02:37→18:40)
[2020-04-17] MEDS: PIPERACILLIN/TAZOB 3.375 GM 3.375 GM in DEXTROSE 5%-WATER - 50 ML IVPB SCH ×5 (02:56→19:13)
[2020-04-17] MEDS: INSULIN SLIDING SCALE (NOVOLOG) 1 VIAL SQ SCH ×3 (08:02→18:33)
[2020-04-17 08:26] LABS: POTASSIUM 4.5 mmol/L (3.5-5.1)
[2020-04-17 08:28] LABS: ALBUMIN 2.9 g/dl (3.4-5.0)
[2020-04-17 08:29] LABS: ALBUMIN 2.9 g/dl (3.4-5.0); BLOOD UREA NITROGEN 27.9 mg/dL (7-18); CALCIUM 8.4 mg/dL (8.5-10.1); MAGNESIUM 2.2 mg/dL (1.8-2.4)
[2020-04-17 08:31] LABS: BILIRUBIN,DIRECT 0.5 mg/dL (0.0-0.2)
[2020-04-17 08:32] LABS: CREATININE 1.3 mg/dL (0.55-1.3)
[2020-04-17 08:33] LABS: BILIRUBIN,TOTAL 0.9 mg/dL (0.2-1); TOT PROT 7.2 g/dl (6.4-8.2); TOT PROT 7.3 g/dl (6.4-8.2)
[2020-04-17 08:37] LABS: BASO % 0.2 % (0-2.0); HEMATOCRIT 30.2 % (35.4-49); HEMOGLOBIN 9.9 GM/dL (11.7-16.9); LYMPH % 6.1 % (8-40); MCH 28.9 pg (25.7-33.7); MCHC 32.8 g/dl (32.0-35.9); MEAN CELL VOLUME 88.2 fl (80-96); MEAN PLT VOLUME 8.2 fl (7.5-11.1); MONO % 5.2 % (3.8-10.2); NEUT % 88.5 % (42.8-82.8); PLATELET COUNT 215 K/MM3 (134-434); RBC 3.43 M/mm3 (4.00-5.60); RDW 19.6 % (11.9-15.9); WHITE BLOOD COUNT 16.1 K/mm3 (4.0-10.0)
[2020-04-17] MEDS ORDERED: VANCOMYCIN 1 GM in D5W (PRE-DOCKED) 1,000 MG/250 ML IVPB SCH (10:00)
[2020-04-17] MEDS ORDERED: VANCOMYCIN 1 GRAM (PRE-DOCKED) 1,000 MG/250 ML BAG IVPB ONE (10:00)
[2020-04-17] MEDS ORDERED: ACETAMINOPHEN 325 MG TABLET (FP) ONE (18:51)
[2020-04-18] MEDS ORDERED: DEXTROSE 5%-WATER - 50 ML IVPB ONE ×4 (01:27→17:46)
[2020-04-18] MEDS ORDERED: PIPERACILLIN/TAZOBACTAM 3.375 GM VIAL IVPB ONE ×4 (01:27→17:46)
[2020-04-18] MEDS: INSULIN SLIDING SCALE (NOVOLOG) 1 VIAL SQ SCH ×5 (01:50→22:29)
[2020-04-18] MEDS: PIPERACILLIN/TAZOB 3.375 GM 3.375 GM in DEXTROSE 5%-WATER - 50 ML IVPB SCH ×3 (01:54→17:53)
[2020-04-18 07:07] LABS: BASO % 0.9 % (0-2.0); HEMATOCRIT 31.7 % (35.4-49); HEMOGLOBIN 10.4 GM/dL (11.7-16.9); LYMPH % 11.2 % (8-40); MCH 28.8 pg (25.7-33.7); MCHC 32.8 g/dl (32.0-35.9); MEAN CELL VOLUME 87.8 fl (80-96); MEAN PLT VOLUME 8.6 fl (7.5-11.1); MONO % 12.6 % (3.8-10.2); NEUT % 74.3 % (42.8-82.8); PLATELET COUNT 226 K/MM3 (134-434); RBC 3.61 M/mm3 (4.00-5.60); RDW 19.8 % (11.9-15.9); WHITE BLOOD COUNT 11.4 K/mm3 (4.0-10.0)
[2020-04-18 07:16] LABS: POTASSIUM 4.2 mmol/L (3.5-5.1)
[2020-04-18 07:24] LABS: CALCIUM 8.3 mg/dL (8.5-10.1)
[2020-04-18 07:25] LABS: ALBUMIN 2.8 g/dl (3.4-5.0); BLOOD UREA NITROGEN 25.8 mg/dL (7-18)
[2020-04-18 07:27] LABS: CREATININE 1.2 mg/dL (0.55-1.3); PHOSPHOROUS 3.2 mg/dL (2.5-4.9)
[2020-04-18 07:28] LABS: BILIRUBIN,TOTAL 1.2 mg/dL (0.2-1)
[2020-04-18 07:30] LABS: TOT PROT 7.1 g/dl (6.4-8.2)
[2020-04-18 15:02] LABS: HIV INTERPRETATION NEGATIVE (NEGATIVE)
[2020-04-18 23:07] LABS: HEP B CORE AB, TOT Negative (Negative)
[2020-04-19] MEDS ORDERED: PIPERACILLIN/TAZOBACTAM 3.375 GM VIAL IVPB ONE ×3 (01:13→16:34)
[2020-04-19] MEDS ORDERED: DEXTROSE 5%-WATER - 50 ML IVPB ONE ×3 (01:14→16:34)
[2020-04-19] MEDS: PIPERACILLIN/TAZOB 3.375 GM 3.375 GM in DEXTROSE 5%-WATER - 50 ML IVPB SCH ×3 (01:25→18:36)
[2020-04-19 07:21] LABS: EOS % 1.2 % (0-4.5); HEMATOCRIT 29.6 % (35.4-49); HEMOGLOBIN 9.7 GM/dL (11.7-16.9); LYMPH % 12.8 % (8-40); MCHC 32.9 g/dl (32.0-35.9); MEAN CELL VOLUME 88.3 fl (80-96); MEAN PLT VOLUME 8.9 fl (7.5-11.1); MONO % 12.9 % (3.8-10.2); NEUT % 72.1 % (42.8-82.8); PLATELET COUNT 201 K/MM3 (134-434); RBC 3.35 M/mm3 (4.00-5.60); WHITE BLOOD COUNT 9.9 K/mm3 (4.0-10.0)
[2020-04-19 07:38] LABS: INR 1.51 (0.83-1.09); PROTHROMBIN TIME (PATIENT) 18.1 SEC (9.7-13.0)
[2020-04-19 07:50] LABS: POTASSIUM 4.9 mmol/L (3.5-5.1)
[2020-04-19] MEDS: INSULIN SLIDING SCALE (NOVOLOG) 1 VIAL SQ SCH ×4 (08:05→21:43)
[2020-04-19 08:17] LABS: CALCIUM 8.2 mg/dL (8.5-10.1)
[2020-04-19 08:18] LABS: ALBUMIN 2.6 g/dl (3.4-5.0); BLOOD UREA NITROGEN 17.4 mg/dL (7-18)
[2020-04-19 08:19] LABS: CREATININE 0.9 mg/dL (0.55-1.3)
[2020-04-19 08:22] LABS: TOT PROT 6.9 g/dl (6.4-8.2)
[2020-04-19] MEDS: COLLAGENASE CLOSTRIDIUM HIST. 30 GRAMS TUBE TP SCH (13:20)
[2020-04-19] MEDS ORDERED: PT OWN MED DRAWER 7, Y5N ONE (13:47)
[2020-04-19] MEDS ORDERED: ACETAMINOPHEN 325 MG TABLET (FP) PO PRN (20:33)
[2020-04-20] MEDS ORDERED: PIPERACILLIN/TAZOBACTAM 3.375 GM VIAL IVPB ONE ×2 (01:27→09:43)
[2020-04-20] MEDS ORDERED: DEXTROSE 5%-WATER - 50 ML IVPB ONE ×2 (01:28→09:43)
[2020-04-20] MEDS: PIPERACILLIN/TAZOB 3.375 GM 3.375 GM in DEXTROSE 5%-WATER - 50 ML IVPB SCH ×2 (01:41→09:48)
[2020-04-20] MEDS: INSULIN SLIDING SCALE (NOVOLOG) 1 VIAL SQ SCH ×4 (06:27→22:04)
[2020-04-20 07:28] LABS: BASO % 1.3 % (0-2.0); EOS % 2.7 % (0-4.5); HEMATOCRIT 27.5 % (35.4-49); HEMOGLOBIN 9.1 GM/dL (11.7-16.9); LYMPH % 11.4 % (8-40); MCH 29.3 pg (25.7-33.7); MCHC 33.1 g/dl (32.0-35.9); MEAN CELL VOLUME 88.4 fl (80-96); MEAN PLT VOLUME 8.9 fl (7.5-11.1); MONO % 13.2 % (3.8-10.2); NEUT % 71.4 % (42.8-82.8); PLATELET COUNT 180 K/MM3 (134-434); RBC 3.12 M/mm3 (4.00-5.60); RDW 19.3 % (11.9-15.9); WHITE BLOOD COUNT 7.9 K/mm3 (4.0-10.0)
[2020-04-20 07:32] LABS: POTASSIUM 4.1 mmol/L (3.5-5.1)
[2020-04-20 07:42] LABS: CALCIUM 7.9 mg/dL (8.5-10.1)
[2020-04-20 07:43] LABS: ALBUMIN 2.3 g/dl (3.4-5.0); MAGNESIUM 1.9 mg/dL (1.8-2.4)
[2020-04-20 07:45] LABS: CREATININE 0.8 mg/dL (0.55-1.3)
[2020-04-20 07:47] LABS: BILIRUBIN,TOTAL 1.9 mg/dL (0.2-1); TOT PROT 6.4 g/dl (6.4-8.2)
[2020-04-20] MEDS ORDERED: PT OWN MED DRAWER 7, Y5N ONE (09:43)
[2020-04-20] MEDS: COLLAGENASE CLOSTRIDIUM HIST. 30 GRAMS TUBE TP SCH (09:48)
[2020-04-20] MEDS: MINERAL OIL/PET HY-PHL TOPICAL OINTMENT 454 GM JAR TP SCH ×2 (14:00→22:03)
[2020-04-21] MEDS: INSULIN SLIDING SCALE (NOVOLOG) 1 VIAL SQ SCH ×4 (06:44→22:05)
[2020-04-21 08:11] LABS: POTASSIUM 4.1 mmol/L (3.5-5.1)
[2020-04-21 08:14] LABS: ALBUMIN 2.7 g/dl (3.4-5.0); CALCIUM 8.4 mg/dL (8.5-10.1); MAGNESIUM 2.1 mg/dL (1.8-2.4)
[2020-04-21 08:17] LABS: CREATININE 0.7 mg/dL (0.55-1.3)
[2020-04-21 08:19] LABS: BASO % 0.8 % (0-2.0); EOS % 2.8 % (0-4.5); HEMATOCRIT 30.2 % (35.4-49); HEMOGLOBIN 9.8 GM/dL (11.7-16.9); LYMPH % 15.3 % (8-40); MCH 28.9 pg (25.7-33.7); MCHC 32.4 g/dl (32.0-35.9); MEAN CELL VOLUME 89.1 fl (80-96); MEAN PLT VOLUME 8.8 fl (7.5-11.1); MONO % 13.3 % (3.8-10.2); NEUT % 67.8 % (42.8-82.8); PLATELET COUNT 239 K/MM3 (134-434); RBC 3.39 M/mm3 (4.00-5.60); RDW 19.5 % (11.9-15.9); TOT PROT 7.4 g/dl (6.4-8.2); WHITE BLOOD COUNT 8.7 K/mm3 (4.0-10.0)
[2020-04-21 08:28] LABS: INR 1.42 (0.83-1.09); PROTHROMBIN TIME (PATIENT) 17.3 SEC (9.7-13.0)
[2020-04-21] MEDS: MINERAL OIL/PET HY-PHL TOPICAL OINTMENT 454 GM JAR TP SCH ×2 (11:41→22:05)
[2020-04-21] MEDS: COLLAGENASE CLOSTRIDIUM HIST. 30 GRAMS TUBE TP SCH (11:41)
[2020-04-22] MEDS: INSULIN SLIDING SCALE (NOVOLOG) 1 VIAL SQ SCH ×4 (06:43→21:05)
[2020-04-22 07:56] LABS: BASO % 1.1 % (0-2.0); EOS % 3.8 % (0-4.5); HEMOGLOBIN 8.4 GM/dL (11.7-16.9); LYMPH % 13.7 % (8-40); MCH 29.6 pg (25.7-33.7); MCHC 33.4 g/dl (32.0-35.9); MEAN CELL VOLUME 88.5 fl (80-96); MEAN PLT VOLUME 8.6 fl (7.5-11.1); MONO % 12.1 % (3.8-10.2); NEUT % 69.3 % (42.8-82.8); PLATELET COUNT 217 K/MM3 (134-434); RBC 2.83 M/mm3 (4.00-5.60); RDW 19.3 % (11.9-15.9)
[2020-04-22 07:59] LABS: INR 1.45 (0.83-1.09); PROTHROMBIN TIME (PATIENT) 17.6 SEC (9.7-13.0)
[2020-04-22 08:20] LABS: POTASSIUM 3.9 mmol/L (3.5-5.1)
[2020-04-22 09:07] LABS: CALCIUM 7.8 mg/dL (8.5-10.1)
[2020-04-22 09:08] LABS: ALBUMIN 2.3 g/dl (3.4-5.0); BLOOD UREA NITROGEN 12.5 mg/dL (7-18)
[2020-04-22 09:11] LABS: CREATININE 0.6 mg/dL (0.55-1.3)
[2020-04-22 09:12] LABS: BILIRUBIN,TOTAL 1.8 mg/dL (0.2-1); TOT PROT 6.3 g/dl (6.4-8.2)
[2020-04-22] MEDS: COLLAGENASE CLOSTRIDIUM HIST. 30 GRAMS TUBE TP SCH (11:52)
[2020-04-22] MEDS: MINERAL OIL/PET HY-PHL TOPICAL OINTMENT 454 GM JAR TP SCH ×2 (11:52→21:05)
[2020-04-23] MEDS: INSULIN SLIDING SCALE (NOVOLOG) 1 VIAL SQ SCH ×4 (06:18→21:06)
[2020-04-23 07:24] LABS: BASO % 1.2 % (0-2.0); EOS % 3.8 % (0-4.5); HEMATOCRIT 27.3 % (35.4-49); HEMOGLOBIN 8.9 GM/dL (11.7-16.9); LYMPH % 15.5 % (8-40); MCHC 32.6 g/dl (32.0-35.9); MEAN PLT VOLUME 8.7 fl (7.5-11.1); NEUT % 68.5 % (42.8-82.8); PLATELET COUNT 242 K/MM3 (134-434); RBC 3.07 M/mm3 (4.00-5.60); RDW 19.3 % (11.9-15.9); WHITE BLOOD COUNT 7.8 K/mm3 (4.0-10.0)
[2020-04-23 07:45] LABS: POTASSIUM 4.2 mmol/L (3.5-5.1)
[2020-04-23 07:55] LABS: ALBUMIN 2.5 g/dl (3.4-5.0); CALCIUM 8.1 mg/dL (8.5-10.1)
[2020-04-23 07:56] LABS: BILIRUBIN,TOTAL 1.7 mg/dL (0.2-1); BLOOD UREA NITROGEN 12.2 mg/dL (7-18)
[2020-04-23 07:57] LABS: BILIRUBIN,TOTAL 1.5 mg/dL (0.2-1); TOT PROT 6.5 g/dl (6.4-8.2); TOT PROT 6.6 g/dl (6.4-8.2)
[2020-04-23 07:58] LABS: BILIRUBIN,DIRECT 0.9 mg/dL (0.0-0.2)
[2020-04-23 07:59] LABS: CREATININE 0.6 mg/dL (0.55-1.3)
[2020-04-23 08:28] LABS: INR 1.43 (0.83-1.09); PROTHROMBIN TIME (PATIENT) 17.4 SEC (9.7-13.0)
[2020-04-23] MEDS: FUROSEMIDE 40 MG TABLET (FP) PO SCH (10:09)
[2020-04-23] MEDS: MINERAL OIL/PET HY-PHL TOPICAL OINTMENT 454 GM JAR TP SCH ×2 (10:13→21:06)
[2020-04-23] MEDS: COLLAGENASE CLOSTRIDIUM HIST. 30 GRAMS TUBE TP SCH (11:25)
[2020-04-24] MEDS: INSULIN SLIDING SCALE (NOVOLOG) 1 VIAL SQ SCH ×2 (06:30→11:24)
[2020-04-24 08:24] LABS: POTASSIUM 4.1 mmol/L (3.5-5.1)
[2020-04-24 08:29] LABS: EOS % 3.1 % (0-4.5); HEMATOCRIT 26.9 % (35.4-49); HEMOGLOBIN 8.8 GM/dL (11.7-16.9); LYMPH % 15.3 % (8-40); MCH 29.2 pg (25.7-33.7); MCHC 32.6 g/dl (32.0-35.9); MEAN CELL VOLUME 89.4 fl (80-96); MEAN PLT VOLUME 8.6 fl (7.5-11.1); MONO % 10.5 % (3.8-10.2); NEUT % 70.1 % (42.8-82.8); PLATELET COUNT 253 K/MM3 (134-434); RBC 3.01 M/mm3 (4.00-5.60); RDW 19.4 % (11.9-15.9); WHITE BLOOD COUNT 6.5 K/mm3 (4.0-10.0)
[2020-04-24 08:38] LABS: CALCIUM 8.2 mg/dL (8.5-10.1)
[2020-04-24 08:39] LABS: ALBUMIN 2.4 g/dl (3.4-5.0); BLOOD UREA NITROGEN 13.8 mg/dL (7-18); MAGNESIUM 1.8 mg/dL (1.8-2.4)
[2020-04-24 08:42] LABS: CREATININE 0.6 mg/dL (0.55-1.3)
[2020-04-24 08:44] LABS: BILIRUBIN,TOTAL 1.4 mg/dL (0.2-1); TOT PROT 6.6 g/dl (6.4-8.2)
[2020-04-24] MEDS: COLLAGENASE CLOSTRIDIUM HIST. 30 GRAMS TUBE TP SCH (09:19)
[2020-04-24] MEDS: MINERAL OIL/PET HY-PHL TOPICAL OINTMENT 454 GM JAR TP SCH (09:19)
[2020-04-24] MEDS: FUROSEMIDE 40 MG TABLET (FP) PO SCH (09:19)
[2020-04-24 12:43] VITALS: BP 110/68; PULSE 79; TEMP 97.4
== END 2020-04-24 14:07 | disposition left against medical advice (07) | DRG 375 ==
LOC: JER 13:30 → JERBED 21:57 → J4S 04-17 23:05
PROVIDERS: ADMIT Hospitalist; ATTEND Nurse Practitioner Family
DX: D49.0 Neoplasm of unspecified behavior of digestive system (principal); N17.9 Acute kidney failure, unspecified; I24.8 Other forms of acute ischemic heart disease; R18.8 Other ascites; F10.11 Alcohol abuse, in remission; R60.1 Generalized edema; R74.01 Elevation of levels of liver transaminase levels; R16.2 Hepatomegaly with splenomegaly, not elsewhere classified; R91.8 Other nonspecific abnormal finding of lung field; K76.9 Liver disease, unspecified; E11.621 Type 2 diabetes mellitus with foot ulcer; L97.509 Non-pressure chronic ulcer of other part of unspecified foot with unspecified severity; D50.9 Iron deficiency anemia, unspecified; D72.829 Elevated white blood cell count, unspecified; E11.42 Type 2 diabetes mellitus with diabetic polyneuropathy; E66.9 Obesity, unspecified; Z68.30 Body mass index [BMI] 30.0-30.9, adult; G47.33 Obstructive sleep apnea (adult) (pediatric); R00.0 Tachycardia, unspecified
CPT/HCPCS: 36415; 71045-TC-FY; 71250-TC; 74176-TC; 74181-TC; 76700-TC; 80053; 80074; 80076; 80307; 81003; 82105; 82272; 82550; 82607; 82728; 82746; 82962; 83540; 83550; 83615; 83735; 83880; 84100; 84484; 85025; 85379; 85610; 85730; 86140; 86480; 86704; 86706; 86707; 86708; 86709; 87040; 87070; 87077; 87086; 87116; 87186; 87205; 87206; 87340; 87389; 87899; 93005; 93010; 99284-25; C9803; U0003